=== PATIENT | female | born 1985 | race Caucasian/White ===

== ENCOUNTER 2024-07-10 07:55 | Inpatient (IN) ==
--- OUTSIDE RECORDS SUMMARY | 2024-07-10 08:02 | External Medical Summary | Summary of Care ---
Author Name Unknown Organization [facility] Address [address] [facility] [place] [address] Phone [phone] Care Team Providers Care Delivery Sales Worker Name Role Phone Bhavin Garcia MD Primary Care Provider Reason for Visit * Reason Comments Cough Encounter Details Date Type Department Care Team (Late st Contact Info) Description 03/17/2024 10:40 AM EST Telemedicine General Internal Medicine [facility] [address] [place] [address] [place] Arzola MD [address] [place] [address] Bronchitis, complicated*; Low grade fever; Exposure to potential infection Allergies Active Allergy Reactions Criticality Noted Date Comments Cefaclor Other (Please comment) 11/20/2023 Takes skin off of tongue Cephalosporins Other (Please comment) Medium 06/28/1999 Takes skin off tongue Dextromethorphan-Guaifene sin 07/25/2020 Palpitations Naproxen 09/13/2010 Nauseas,vomiting Prednisone Other (Please comment) 09/12/2015 vomiting Shellfish Nausea/vomiting Low 09/06/2009 Sulfa Antibiotics Edema face/lips/tongue High 05/24/2012 documented as of this encounter (statuses as of 03/17/2024) Medications TRIAMCINOLONE ACETONIDE 0.1 % EX OINTIndications :Dermatitis Apply to affected area twice a day 30 g 1 3 Active Tums E-X 750 750 MG Oral Tablet Chewable (calcium CARBonate) Take 2 Tabs by mouth 2 times a day. 28 Tab 1 Active Loratadine 10 MG Oral Tablet (Claritin) Take 1 Tablet by mouth every afternoon. Active Ventolin HFA 108 (90 Base) MCG/ACT Inhalation Aerosol SolutionIndicat ions:Cough, unspecified type Inhale 2 Puffs by mouth every 4 hours as needed for Wheezing. 8 g 2 4 Active Additional Information Patient not taking.Reported on 03/17/2024 Azithromycin 250 MG Oral Tablet (Zithromax Z-Joe)Indicatio ns:Bronchitis, complicated,Low grade fever,Exposure to potential infection Take two tablets by mouth on first day, then 1 tablet daily until gone 6 Tablet 4 Active Fluticasone Propionate 50 MCG/ACT Nasal SuspensionIndic ations:as needed Administer 1 [place] into nostril daily at noon. Discontin ued(End of Procedure ) Polyethylene Glycol 3350 17 GM/SCOOP Oral PowderIndicatio ns:as needed Take 17 g by mouth in the morning. Discontin ued(End of Procedure ) Spacer/Aero-Hol ding Chambers Device Use with inhaler. 1 Each 2 Discontin ued(End of Procedure ) Lansoprazole 30 MG Oral Capsule Delayed Release (Prevacid) Take 1 Capsule by mouth in the morning. 30 minutes before the first meal of the day.. 30 Capsule 1 4 024 Discontin ued(End of Procedure ) Fluticasone-Segundo meterol 250-50 MCG/ACT Inhalation Aerosol Powder Breath Activated (Advair Diskus)Indicati ons:Cough, unspecified type Inhale 1 Puff by mouth in the morning and 1 Puff before bedtime. 60 Each 1 4 024 Discontin ued(End of Procedure ) Doxycycline Hyclate 100 MG Oral Capsule Take 1 Capsule by mouth in the morning and 1 Capsule before bedtime. 4 024 Discontin ued(End of Procedure ) Apixaban Starter Pack 5 MG Oral Tablet Therapy Pack (Eliquis DVT/PE Starter Pack)Indication s:Superficial thrombosis of left lower extremity Take 10 mg by mouth 2 times a day for 7 days, THEN 5 mg 2 times a day for 21 days. 74 Tablet 12/01/2023 10:59 AM EDT 4 024 Discontin ued(End of Procedure ) documented as of this encounter (statuses as of 03/17/2024) Active Problems Problem Noted Date Diagnosed Date Chronic gastritis without bleeding 12/03/2022 Gastroesophageal reflux disease without esophagi tis 03/28/2019 Multinodular goiter 06/05/2016 GERA (generalized anxiety disorder) 05/06/2013 Allergic rhinitis 08/18/2000 documented as of this encounter (statuses as of 03/17/2024) Resolved Problems Problem Noted Date Diagnosed Date Resolved Date Persistent cough for 3 weeks or longer 06/19/2022 09/30/2022 Acute non-recurrent frontal sinusitis 06/19/2022 09/30/2022 Costochondritis 09/13/2010 05/06/2013 Threatened premature labor, antepartum 09/13/2009 10/29/2009 Overview (08/28/2020): Admitted at 27+ wks to [facility] [place] and sent to [place] - d/c'd Cx length 1.5 cm, Cx dilated 1 cm FFN + Rec'd BMZ Off work ICD-10 update of inactive term ADVANCE DIRECTIVE INFORMATION 08/21/2009 12/13/2021 Overview (09/02/2005): Information offered-patient declined Twin , antepartum 06/05/2009 0 10/29/2009 Overview (10/08/2009): U/s 09/25 - vtx/vtx, concordant growth per Dr Childress Needs weekly kimi, twice weekly nsts at 32 wks. Rh negative, antepartum 04/25/2009 07/0 08/2009 Overview (08/28/2015): Rhogam candidate with spotting and 28w- 09/14/2009 given Itzel VICK ICD-10 update of inactive term OB [place] 04/24/2009 0 JOINT PAIN-ANKLE 08/29/2000 05/06/2013 DYSFUNCT EUSTACHIAN TUBE 08/18/200001/2014 documented as of this encounter (statuses as of 03/17/2024) Immunizations Name Administration Dates Next Due HEP A - Hepatitis A (Adult > 18 yrs) 08/29/2021, 03/01/2021 Hepatitis B, 20+ yrs 08/29/2021,06/25/2021,03/01 PPD 06/06/2015 TDAP (age 10 and older)(Boostrix) 02/06/2020 TDAP, Age 7 and older, IM (Adacel) 10/29/2009 documented as of this encounter Social History Tobacco Use Types Packs/Day Years Used Date Smoking Tobacco: Never Smokeless Tobacco: Never Alcohol Use Standard Drinks/Week Comments No 0 (1 standard drink = 0.6 oz pur e alcohol) PHQ-2 Answer Date Recorded PHQ Adult Total Score 0 08/24/2023 Hunger Vital Sign Answer Date Recorded Within the past 12 months, y ou worried that your food would run out before you got the money to buy more. Never true 11/30/19 24 Within the past 12 months, t he food you bought just didn't last and you didn't have money to get more. Never true 11/30/2023 Childcare Answer Date Recorded Do you feel overwhelmed with taking care of a child, family member or friend? No 11/30/2023 Does your family need help f inding childcare? (Household - for ages 0-17 years) Not on file 11/30/2023 Clothing Answer Date Recorded Have you been unable to get clothing when it was really needed? No 11/30/2023 Is your family able to get c lothes or diapers when needed? (Household - for ages 0-17 years) Not on file 11/30/2023 Personal Safety Answer Date Recorded Do you feel unsafe or have concerns for your saf ety? No 11/30/2023 Do you have concerns for you r family's safety? (Household - for ages 0-17 years) Not on file 11/30/2023 Utilities Answer Date Recorded Do you have trouble paying y our heating, water, or electric bill? No 11/30/2023 Is your family able to pay t he heat, water, or electric bill? (Household - for ages 0-17 years) Not on file 11/30/2023 Does your family have access to good internet? (Household - for ages 0-17 years) Not on file 11/30/2023 Employment Status Answer Date Recorded Are you unemployed or without regular income? No 11/30/2023 Does the household have a re gular source of income? (Household - for ages 0-17 years) Not on file 11/30/2023 Social Connections Answer Date Recorded How often do you feel lonely or isolated from th ose around you? Never 11/30/2023 Financial Resource Strain Answer Date R ecorded Do you have any trouble payi ng for your medications, or do you think you might in the future? No 11/30/2023 Does your family have troubl e paying for medicine? (Household - for ages 0-17 years) Not on file 11/30/2023 Transportation Needs Answer Date Record ed Do you have trouble getting a ride to medical visits or work? (Adult - for ages 18 years and over) Not on file 11/30/2023 Does your family have a hard time getting a ride to doctors visits? (Household - for ages 0-17 years) Not on file 11/30/2023 Has lack of transportation k ept you from medical appointments, meetings, work, or from getting things needed for daily living? Check all that apply. No 11/30/2023 Do you (or your family) have trouble finding or paying for a ride (transportation)? (Household - for ages 0-17 years) Not on file 11/30/2023 Housing Stability Answer Date Recorded Do you currently live in a s helter or have no steady place to sleep at night? No 11/30/2023 Do you think you are at risk of becoming homeless? (Adult - for ages 18 years and over) Not on file 11/30/2023 Does your family worry about paying for your home or becoming homeless? (Household - for ages 0-17 years) Not on file 0 11/30/2023 Are you homeless or worried that you might be in the future? No 11/30/2023 Are you (or your family) joe eless or worried that you might be in the future? (Household - for ages 0-17 years) Not on file Food Insecurity Answer Date Recorded Do you need food for this week? No 11/30/2023 Are you able to get enough f ood for your family? (Household - for ages 0-17 years) Not on file 11/30/2023 Does your family need food t his week? (Household - for ages 0-17 years) Not on file 11/30/2023 Do you always have enough fo od for your family? (Household - for ages 0-17 years) Not on file 11/30/2023 Comments No Sex and Gender Information Value Date Recorded Sex Assigned at Female 11/20/2022 9:18 AM EDT Legal Sex Female 7:11 AM EST Gender Identity Female 11/20/2022 9:18 AM EDT Sexual Orientation Straight 11/20/2022 9: 18 AM EDT documented as of this encounter Progress Notes * [place] Arzola MD - 03/17/2024 10:49 AM EST SUBJECTIVE: Queta Pagan is a 38 year old female. Chief Complaint Patient presents with Cough Nursing Notes: Claudia Amador, Student 03/17/24 1038 Signed Pt presents with a dry hacking cough and a fever that started in the last week. No other cold symptoms present. Pt was exposed to walking pneumonia and has taken numerous OTC medications w/o desired effects I was in a hospital or clinic location. After connecting through televideo, patient was verified with two unique identifiers. 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 Methods to assure confidentiality were taken. Patient acknowledged consent and understanding of privacy and security of the Telemedicine visit. The patient agreed to participate. HPI: This clinic encounter was completed utilizing remote or virtual means secondary to the COVID-19 outbreak. Patient presents today for acute appointment with symptoms of cough for the last 6 days feels she has chest congestion but unable to expectorate. No wheezing chest pain or shortness of breath. Has mild pressure across her forehead. Denies runny nose or sore throat Fever low-grade for the last 2 days 100.4 F. her 2 kids age 14 had walking pneumonia 1 of them had an x-ray which confirmed it the other had just a clinical exam. Has not done home COVID test. Had recurrent sinus infection in June and was treated with antibiotics, also was given prednisone,steroid inhaler and albuterol inhaler. 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 Immunization History Administered Date(s) Administered DT - Diptheria/Tetanus (PEDS) 06/28/1999 DTP Vaccine 1983, 1983, 01/07/1984, 03/10/1985, 03/21/1988 HEP A - Hepatitis A (Adult > 18 yrs) 03/01/2021, 08/29/2021 HEP B - Hepatitis B (Adole/High Risk Ped, 11-15 yrs 06/28/1999 Hepatitis B, 20+ yrs 03/01/2021, 06/25/2021, 08/29/2021 MMR - Measles/Mumps/Rubella Vaccine 10/18/1984, 06/28/1999 OPV - Polio Virus Vaccine (Oral) 1983, 1983, 03/10/1985, 03/21/1988 PPD 06/06/2015 Rho Immune Globulin 09/14/2009, 10/27/2009 TDAP (age 10 and older)(Boostrix) 02/06/2020 TDAP, Age 7 and older, IM (Adacel) 10/29/2009 Terbutaline Sulfate 09/12/2009, 09/13/2009, 09/14/2009, 09/26/2009, 10/03/2009, 10/22/2009, 10/26/2009 Patient Active Problem List Diagnosis Allergic rhinitis GERA (generalized anxiety disorder) Multinodular goiter Gastroesophageal reflux disease without esophagitis Chronic gastritis without bleeding Current Outpatient Medications Medication Sig Dispense Refill TRIAMCINOLONE ACETONIDE 0.1 % EX OINT Apply to affected area twice a day 30 g 1 Polyethylene Glycol 3350 17 GM/SCOOP Oral Powder Take 17 g by mouth in the morning. Tums E-X 750 750 MG Oral Tablet Chewable (calcium CARBonate) Take 2 Tabs by mouth 2 times a day. 28Tab 0 Loratadine 10 MG Oral Tablet (Claritin) Take 1 Tablet by mouth every afternoon. Ventolin HFA 108 (90 Base) MCG/ACT Inhalation Aerosol Solution Inhale 2 Puffs by mouth every 4 hours as needed for Wheezing. (Patient not taking: Reported on 03/17/2024) 8 g 2 No current facility-administered medications for this visit. Review of patient's allergies indicates: Allergen Reactions Sulfa Antibiotics Edema face/lips/tongue Cephalosporins Other (Please comment) Takes skin off tongue Cefaclor Other (Please comment) Takes skin off of tongue Mucinex Cough For Kids [Dextromethorphan-Guaifenesin] Palpitations Naprosyn [Naproxen] Nauseas,vomiting Prednisone Other (Please comment) vomiting Shellfish Nausea/vomiting OBJECTIVE: No vitals were obtained for this appointment PHYSICAL EXAM: General: alert, healthy, no distress Head-normocephalic, no erythema or tenderness on patient exam Eyes-sclera clear. OP- Mm Moist Neck-supple Lungs: able to take deep breaths,no rhonchi with forced expiration but has audible congestion Neuro-alert with fluent speech Face flushed ASSESSMENT/PLAN: Bronchitis, complicated (Primary) - Azithromycin 250 MG Oral Tablet (Zithromax Z-Joe); Take two tablets by mouth on first day, then 1tablet daily until gone - XR CHEST 2 VIEWS; Future; Expected date: 03/19/2024 Low grade fever - Azithromycin 250 MG Oral Tablet (Zithromax Z-Joe); Take two tablets by mouth on first day, then 1tablet daily until gone - XR CHEST 2 VIEWS; Future; Expected date: 03/19/2024 Exposure to potential infection - Azithromycin 250 MG Oral Tablet (Zithromax Z-Joe); Take two tablets by mouth on first day, then 1tablet daily until gone - XR CHEST 2 VIEWS; Future; Expected date: 03/19/2024 Inc intake fluids. Advised to use otc nasal saline spray/drops q1-2 hrs while awake as needed. Advised warm saline gargles qid prn for relief. Mucinex 1 or 2 pills by mouth twice a day for cough with plenty of water as needed Tylenol 500 mg 1-2 tabs Alternate with Motrin 200 mg 2 tab every 8 hrs as needed for pain/fever. Advised to use albuterol that she has 2 to 3 times a day till better. Z-Joe as above. If fever persists or if cough not better to have chest x-ray done in the next 2- 3 days Follow Up: Return if symptoms worsen or fail to improve. (This note was completed using the dictation program Fluency Direct. As such, there may be misspellings, word substitutions, or other variations that should not change the essence of the clinical content of this encounter note. If there is need for further clarification, please direct questions to the provider listed above.) Patient and / caregiver verbalizes understanding of above instructions and agrees with plan of care. [place] Arzola MD 03/17/2024 documented in this encounter Nursing Notes * Claudia Amador, Student - 03/17/2024 10:34 AM EST Pt presents with a dry hacking cough and a fever that started in the last week. No other cold symptoms present. Pt was exposed to walking pneumonia and has taken numerous OTC medications w/o desired effects documented in this encounter Plan of Treatment Scheduled Orders Name Type Priority Associated Diagnoses Orde r Schedule XR CHEST 2 VIEWS Medical Imaging Routine Bronchitis, complicated Low grade fever Exposure to potential infection Expected: 03/19/2024, Expires: 04/16/2025 Health Maintenance Due Date Last Done Comments Lipid Panel 1983 HPV/Co-Test 07/02/2013 COVID-19 Vaccine ( season) 2023 Influenza Vaccine (FLU shot) (#1) 2023 Cervical Cancer Screening 05/28/2024 Pap Smear 05/28/2024 05/28/2021, 06/09/2019, 03/09/2019, Additional history exists Depression Screening 08/23/2024 08/24/2023 Mammogram 09/13/2024 09/14/2023, 09/10/2005 DTap/Tdap Vaccines (9 - Td or Tdap) 02/05/2030 02/06/2020, 10/29/2009, 06/28/1999, Additional history exists Hepatitis C Screening Completed 02/07/2014 Hepatitis B Vaccine Completed 08/29/2021, 06/25/2021, 03/01/2021, Additional history exists HPV (Gardasil) Vaccine Aged Out No lo nger eligible based on patient's age to complete this topic MENINGOCOCCAL (MENACTRA/MENVEO) Aged Out No longer eligible based on patient's age to complete this topic Pneumococcal Vaccine: Pediatrics (0 to 5 Years) and At-Risk Patients (6 to 64 Years) Aged Out No longer eligible based on patient's age to complete this topic documented as of this encounter Medical Devices Implanted Type Area Hydrochloric Manufacturing Supervisor Device Identifier Shelf Expiration Date Model / Serial / Lot Patch Hernia Ventralex l - [id number] Implanted:Qty: 1 on 09/06/2019 by Jelani Rey MD at [facility] N/A: Abdomen CR BARD : DAVOL 02/21/2021 [id number] / / [id number] documented as of this encounter Visit Diagnoses Diagnosis Bronchitis, complicated- Primary Bronchitis, not specified as acute or chronic Low grade fever Fever, unspecified Exposure to potential infection Contact with or exposure to unspecified communicable disease documented in this encounter Advance Directives * Full Code (Latest Code Status on File) Date Activated Date Inactivated Comments 09/06/2019 11:39 AM 09/06/2019 5:40 PM This order reflects the patients wishes and were consensually agreed upon. * Full Code Date Activated Date Inactivated Comments 10/26/2009 4:05 PM 10/30/2009 2:56 AM This order ref lects the patients wishes and were consensually agreed upon. * Full Code Date Activated Date Inactivated Comments 10/15/2009 9:15 PM 10/19/2009 3:02 PM This order r eflects the patients wishes and were consensually agreed upon. * Full Code Date Activated Date Inactivated Comments 09/06/2009 10:09 PM 09/10/2009 2:14 PM This order reflects the patients wishes and were consensually agreed upon. Care Teams Delivery Sales Worker Relationship Specialty Start Date End Date Bhavin Garcia MD [address] [facility] [place] [id number] PCP - General Family Medicine 08/13/23 documented as of this encounter
--- OUTSIDE RECORDS SUMMARY | 2024-07-10 08:02 | External Medical Summary | Summary of Care ---
Author Name Unknown Organization [facility] Address [address] [place] [address] Phone [phone] Care Team Providers Care Roller Engraver Name Role Phone Bhavin Garcia MD Primary Care Provider Reason for Visit * Reason Comments Follow Up 3 months. Occasional discomfort in area where blood clot was. Has not taken medication for the past month as it was only written for 2 months. Encounter Details Date Type Department Care Team (Late st Contact Info) Description 03/01/2024 4:40 PM EST Office Visit Family [facility] [address] [place] [address] Mone Lora CRNP [address] [facility] [place] [address] History of blood clots* Allergies Active Allergy Reactions Criticality Noted Date Comments Cefaclor Other (Please comment) 11/20/2023 Takes skin off of tongue Cephalosporins Other (Please comment) Medium 06/28/1999 Takes skin off tongue Dextromethorphan-Guaifene sin 07/25/2020 Palpitations Naproxen 09/13/2010 Nauseas,vomiting Prednisone Other (Please comment) 09/12/2015 vomiting Shellfish Nausea/vomiting Low 09/06/2009 Sulfa Antibiotics Edema face/lips/tongue High 05/24/2012 documented as of this encounter (statuses as of 03/01/2024) Medications Medication Sig Dispensed Refills Start Date End Date Status TRIAMCINOLONE ACETONIDE 0.1 % EX OINTIndications: Dermatitis Apply to affected area twice a day 30 g 1 02/15/2013 Active Fluticasone Propionate 50 MCG/ACT Nasal SuspensionIndica tions:as needed Administer 1 [place] into nostril daily at noon. Active Polyethylene Glycol 3350 17 GM/SCOOP Oral PowderIndication s:as needed Take 17 g by mouth in the morning. Active Tums E-X 750 750 MG Oral Tablet Chewable (calcium CARBonate) Take 2 Tabs by mouth 2 times a day. 28 Tab 09/20/2020 Active Spacer/Aero-Hold ing Chambers Device Use with inhaler. 1 Each 12/24/2021 Active Additional Information Patient not taking.Reported on 12/03/2022 Loratadine 10 MG Oral Tablet (Claritin) Take 1 Tablet by mouth every afternoon. Active Lansoprazole 30 MG Oral Capsule Delayed Release (Prevacid) Take 1 Capsule by mouth in the morning. 30 minutes before the first meal of the day.. 30 Capsule 1 08/13/2023 Active Additional Information Patient not taking.Reported on 11/30/2023 Fluticasone-Salm eterol 250-50 MCG/ACT Inhalation Aerosol Powder Breath Activated (Advair Diskus)Indicatio ns:Cough, unspecified type Inhale 1 Puff by mouth in the morning and 1 Puff before bedtime. 60 Each 1 08/24/2023 Active Additional Information Patient not taking.Reported on 11/30/2023 Ventolin HFA 108 (90 Base) MCG/ACT Inhalation Aerosol SolutionIndicati ons:Cough, unspecified type Inhale 2 Puffs by mouth every 4 hours as needed for Wheezing. 8 g 2 08/24/2023 Active Additional Information Patient not taking.Reported on 03/01/2024 Apixaban 5 MG Oral Tablet (Eliquis)Indicat ions:Superficial thrombosis of left lower extremity Take 1 Tablet by mouth in the morning and 1 Tablet before bedtime. Do not start before December 31, 2023. 60 Tablet 12/31/2023 4 Discontinued documented as of this encounter (statuses as of 03/01/2024) Active Problems Problem Noted Date Diagnosed Date Chronic gastritis without bleeding 12/03/2022 Gastroesophageal reflux disease without esophagi tis 03/28/2019 Multinodular goiter 06/05/2016 GERA (generalized anxiety disorder) 05/06/2013 Allergic rhinitis 08/18/2000 documented as of this encounter (statuses as of 03/01/2024) Resolved Problems Problem Noted Date Diagnosed Date Resolved Date Persistent cough for 3 weeks or longer 06/19/2022 09/30/2022 Acute non-recurrent frontal sinusitis 06/19/2022 09/30/2022 Costochondritis 09/13/2010 05/06/2013 Threatened premature labor, antepartum 09/13/2009 10/29/2009 Overview: Admitted at 27+ wks to [facility] and sent to [place] - d/c'd Cx length 1.5 cm, Cx dilated 1 cm FFN + Rec'd BMZ Off work ICD-10 update of inactive term ADVANCE DIRECTIVE INFORMATION 08/21/2009 12/13/2021 Overview: Information offered-patient declined Twin , antepartum 06/05/2009 0 10/29/2009 Overview: U/s 09/25 - vtx/vtx, concordant growth per Dr Childress Needs weekly kimi, twice weekly nsts at 32 wks. Rh negative, antepartum 04/25/200908/2009 Overview: Rhogam candidate with spotting and 28w- 09/14/2009 given Itzel VICK ICD-10 update of inactive term OB [place] 04/24/2009 0 JOINT PAIN-ANKLE 08/29/2000 05/06/2013 DYSFUNCT EUSTACHIAN TUBE 08/18/200001/2014 documented as of this encounter (statuses as of 03/01/2024) Immunizations Name Administration Dates Next Due HEP [...] ages 0-17 years) Not on file 11/30/2023 Sex and Gender Information Value Date Recorded Sex Assigned at Female 11/20/2022 9:18 AM EDT Gender Identity Female 11/20/2022 9:18 AM EDT Sexual Orientation Straight 11/20/2022 9: 18 AM EDT Job Start Date Occupation Industry Not on file Not on file Not on file documented as of this encounter Last Filed Vital Signs Vital Sign Reading Time Taken Comments Blood Pressure 102/68 03/01/2024 4:27 PM EST Pulse 65 03/01/2024 4:27 PM EST Temperature 37.3 C (99.1 F) 03/01/2024 4:27 PM ES T Respiratory Rate - - Oxygen Saturation 95% 03/01/2024 4:27 PM EST Inhaled Oxygen Concentration - - Weight 67.9 kg (149 lb 12.8 oz) 03/01/2024 4:27 PM EST Height - - Body Mass Index 23.46 08/17/2023 2:50 PM EDT documented in this encounter Progress Notes * Mone Lora CRNP - 03/01/2024 4:28 PM EST Images from the original note were not included. Follow up Family Medicine Visit History of Present Illness Queta Pagan is a very pleasant 38 year old female with PMH listed below presenting with 3 month f/u. Had a superficial blood clot in perineal and post tibial, no DVT. Provoked by severe trauma. Monitoring vs treating with anticoagulation, treat with Eliquis 2 months, symptoms improved. Social History Socioeconomic History Marital status: Spouse name: Not on file Number of children: 2 Years of education: Not on file Highest education level: Not on file Occupational History Not on file Tobacco Use Smoking status: Never Smokeless tobacco: Never Vaping Use Vaping status: Never Used Substance and Sexual Activity Alcohol use: No Drug use: No Sexual activity: Yes Partners: Male control/protection: Surgical Comment: BTL Other Topics Concern Not on file Social History Narrative Not on file Social Determinants of Health Financial Resource Strain: Low Risk (11/30/2023) Financial Resource Strain Do you have any trouble paying for your medications, or do you think you might in the future? (Adult - for ages 18 years and over): No Does your family have trouble paying for medicine? (Household - for ages 0-17 years): Not on file Food Insecurity: No Food Insecurity (11/30/2023) Food Insecurity Do you need food for this week? (Adult - for ages 18 years and over): No Are you able to get enough food for your family? (Household - for ages 0-17 years): Not on file Does your family need food this week? (Household - for ages 0-17 years): Not on file Do you always have enough food for your family? (Household - for ages 0-17 years): Not on file Transportation Needs: No Transportation Needs (11/30/2023) Transportation Needs Do you have trouble getting a ride to medical visits or work? (Adult - for ages 18 years and over):Not on file Does your family have a hard time getting a ride to doctors visits? (Household - for ages 0-17 years): Not on file Has lack of transportation kept you from medical appointments, meetings, work, or from getting things needed for daily living? Check all that apply. (Adult - for ages 18 years and over): No Do you (or your family) have trouble finding or paying for a ride (transportation)? (Household - for ages 0-17 years): Not on file Social Connections: Socially Integrated (11/30/2023) Social Connections How often do you feel lonely or isolated from those around you? (Adult - for ages 18 years and over): Never Housing Stability: Low Risk (11/30/2023) Housing Stability Do you currently live in a jail or have no steady place to sleep at night? (Adult - for ages 18 years and over): No Do you think you are at risk of becoming homeless? (Adult - for ages 18 years and over): Not on file Does your family worry about paying for your home or becoming homeless? (Household - for ages 0-17 years): Not on file Are you homeless or worried that you might be in the future? (Adult - for ages 18 years and over): No Are you (or your family) homeless or worried that you might be in the future? (Household - for ages0-17 years): Not on file PMH: Past Medical History: Diagnosis Date ALLERGIC RHINITIS NOS 08/18/2000 Dysplasia of cervix, low grade (KIM 1) 08/2018 again 11/2020 GERA (generalized anxiety disorder) 05/06/2013 Multinodular goiter 06/05/2016 Past Surgical History: Procedure Laterality Date , INDUCED BY D&E 2012 ANESTH, CS DELIVERY 10/26/2009 ANESTHESIA FOR DELIVERY ONLY performed by MAYA FRANCO at [facility] BREAST LESION,OTHER,EXCISION Right 2008 benign @ [facility], [facility] DELIVERY 10/26/2009 twins COLONOSCOPY, DIAGNOSTIC (RECTUM) 08/03/2020 normal bx / COLONOSCOPY FLEXIBLE PROXIMAL DIAGNOSTIC performed by Mason Ramirez MD at ENDOSCOPY [facility] COLPOSCOPY OF CERVIX W/BIOPSY 08/2018 EGD, FLEXIBLE, DIAGNOSTIC 05/31/2013 ESOPHAGOGASTRODUODENOSCOPY (EGD), FLEXIBLE, TRANSORAL, DIAGNOSTIC performed by Mason Ramirez MD at END[facility]COPY [facility] EGD, FLEXIBLE, DIAGNOSTIC 08/09/2018 normal biopsies/ESOPHAGOGASTRODUODENOSCOPY (EGD), FLEXIBLE, TRANSORAL, DIAGNOSTIC performed by Mason Ramirez MD at ENDOSCOPY [facility] EGD, FLEXIBLE, DIAGNOSTIC 08/03/2020 mild - mod inflammation / ESOPHAGOGASTRODUODENOSCOPY (EGD), FLEXIBLE, TRANSORAL, DIAGNOSTIC performed by Mason Ramirez MD at ENDOSCOPY [facility] LIGATE/CUT OVIDUCT(S) OTHER 1999 x4 wisdom teeth removed OTHER 09/2005 excision right breast mass- fibroadenoma Dr. Kelly REMOVAL OF THYROID LOBE, TOTAL Left 09/20/2020 TOTAL THYROID LOBECTOMY UNILATERAL performed by Goyo Bhardwaj DO at [facility] REPAIR INITIAL INGUINAL HERNIA REDUCIBLE AGE 5 OR MORE 06/08/2006 LIH repair - [facility] [place] Dr. Kelly UMBIL HERNIA REPAIR (REDUCIBLE) AGE 5+YR N/A 09/06/2019 REPAIR UMBILICAL HERNIA AGE 5 AND OVER performed by Jelani Rey MD at OR [facility] Current Outpatient Medications Medication Sig Dispense Refill Apixaban 5 MG Oral Tablet (Eliquis) Take 1 Tablet by mouth in the morning and 1 Tablet before bedtime. Do not start before December 31, 2023. 60 Tablet 0 Loratadine 10 MG Oral Tablet (Claritin) Take 1 Tablet by mouth every afternoon. Tums E-X 750 750 MG Oral Tablet Chewable (calcium CARBonate) Take 2 Tabs by mouth 2 times a day. 28Tab 0 Polyethylene Glycol 3350 17 GM/SCOOP Oral Powder Take 17 g by mouth in the morning. TRIAMCINOLONE ACETONIDE 0.1 % EX OINT Apply to affected area twice a day 30 g 1 Fluticasone-Salmeterol 250-50 MCG/ACT Inhalation Aerosol Powder Breath Activated (Advair Diskus) Inhale 1 Puff by mouth in the morning and 1 Puff before bedtime. (Patient not taking: Reported on 11/30/2023) 60 Each 1 Ventolin HFA 108 (90 Base) MCG/ACT Inhalation Aerosol Solution Inhale 2 Puffs by mouth every 4 hours as needed for Wheezing. (Patient not taking: Reported on 03/01/2024) 8 g 2 Lansoprazole 30 MG Oral Capsule Delayed Release (Prevacid) Take 1 Capsule by mouth in the morning. 30 minutes before the first meal of the day.. (Patient not taking: Reported on 11/30/2023) 30 Capsule 1 Spacer/Aero-Holding Chambers Device Use with inhaler. (Patient not taking: Reported on 12/03/2022) 1 Each 0 Fluticasone Propionate 50 MCG/ACT Nasal Suspension Administer 1 [place] into nostril daily at noon. (Patient not taking: Reported on 11/23/2023) No current facility-administered medications for this visit. Review of patient's allergies indicates: Allergen Reactions Sulfa Antibiotics Edema face/lips/tongue Cephalosporins Other (Please comment) Takes skin off tongue Cefaclor Other (Please comment) Takes skin off of tongue Mucinex Cough For Kids [Dextromethorphan-Guaifenesin] Palpitations Naprosyn [Naproxen] Nauseas,vomiting Prednisone Other (Please comment) vomiting Shellfish Nausea/vomiting Most Recent Immunizations Administered Date(s) Administered DT - Diptheria/Tetanus (PEDS) 06/28/1999 DTP Vaccine 03/21/1988 HEP A - Hepatitis A (Adult > 18 yrs) 08/29/2021 HEP B - Hepatitis B (Adole/High Risk Ped, 11-15 yrs 06/28/1999 Hepatitis B, 20+ yrs 08/29/2021 MMR - Measles/Mumps/Rubella Vaccine 06/28/1999 OPV - Polio Virus Vaccine (Oral) 03/21/1988 PPD 06/06/2015 Rho Immune Globulin 10/27/2009 TDAP (age 10 and older)(Boostrix) 02/06/2020 TDAP, Age 7 and older, IM (Adacel) 10/29/2009 Terbutaline Sulfate 10/26/2009 Review of Systems: Physical Exam There were no vitals taken for this visit. Physical Exam Constitutional: Appearance: Normal appearance. Musculoskeletal: Left upper leg: No swelling or edema. Neurological: General: No focal deficit present. Mental Status: She is oriented to person, place, and time. Assessment and Plan 1. History of blood clots Provoked by trauma Resolved Wrap-Up I have advised the patient to call our office with any worsening or new symptoms. I spent a total of 10-19 minutes (exact time 15 mins) on the date of service in preparation, delivery, and documentation of the care provided to Queta Pagan excluding any time spent in the performance of separately billed services. Mone Lora, DAVONTE, MINOO [facility] documented in this encounter Nursing Notes * Tanya Adams, Rachel - 03/01/2024 4:24 PM EST The patient has been properly identified by confirmation of name and date of . Chief Complaint Patient presents with Follow Up 3 months. Occasional discomfort in area where blood clot was. Has not taken medication for the pastmonth as it was only written for 2 months. documented in this encounter Plan of Treatment Upcoming Encounters Date Type Department Care Team (Late st Contact Info) Description 03/17/2024 10:00 AM EST Office Visit Family [facility] [address] [place] [address] Diane Mi CRNP [address] [place] [address] Health Maintenance Due Date Last Done Comments Lipid Panel 1983 HPV/Co-Test 07/02/2013 COVID-19 Vaccine ( season) 2023 Influenza Vaccine (FLU shot) (#1) 2023 Cervical Cancer Screening 05/28/2024 Pap Smear 05/28/2024 05/28/2021, 09/26, 03/09/2019, Additional history exists Depression Screening 08/23/2024 [...] this encounter Medical Devices Implanted Type Area Mobile Heavy Equipment Operator Device Identifier Shelf Expiration Date Model / Serial / Lot Patch Hernia Ventralex l - [id number] Implanted:Qty: 1 on 09/06/2019 by Jelani Rey MD at [facility] N/A: Abdomen CR BARD : DAVOL 02/21/2021 [id number] / / [id number] documented as of this encounter Visit Diagnoses Diagnosis History of blood clots- Primary Personal history of venous thrombosis and embolism documented in this encounter Advance Directives * [...] and were consensually agreed upon. Care Teams Roller Engraver Relationship Specialty Start Date End Date Bhavin Garcia MD [address] [place] [address] PCP - General Family Medicine 08/13/23 documented as of this encounter
--- OUTSIDE RECORDS SUMMARY | 2024-07-10 08:02 | External Medical Summary | Summary of Care ---
Author Name Unknown Organization [facility] Address [address] [facility] [place] [address] Phone [phone] Care Team Providers Care Member Certification Manager Name Role Phone Bhavin Garcia MD Primary Care Provider Reason for Referral * Evaluate & Treat - Unlimited Visits (Within 10 days (routine)) - Authorized Specialty Diagnoses / Procedures Referred By Iglesia butt Referred To Contact Physical Therapy / Physical Medicine And Rehab Diagnoses Laceration of left lower leg, initial encounter [employer] PA-C [address] [place] [id number] Referral ID Status Reason Start Date Expiration Date Visits Requested Visits Authorized [id number] Authorized Specialty Services Required 12/01/[phone] Question Answer Referral Priority Within 10 days (routine) Where should this appointment be scheduled? [facility] Comments PT 2 to 3 times a week for 4-6 weeks Wean crutches Increase range of motion Modalities and is as needed Reason for Visit * Reason Onset Date Comments Physical Therapy 11/30/2023 Encounter Details Date Type Department Care Team (Late st Contact Info) Description 11/30/2023 Telephone Orthopaedics [facility] [address] [place] [address] [employer] PA-C [address] [place] [address] Physical Therapy Allergies Active Allergy Reactions Criticality Noted Date Comments Cephalosporins Other (Please comment) Medium 06/28/1999 Takes skin off tongue Dextromethorphan-Guaifene sin 07/25/2020 Palpitations Naproxen 09/13/2010 Nauseas,vomiting Prednisone Other (Please comment) 09/12/2015 vomiting Shellfish Nausea/vomiting Low 09/06/2009 Sulfa Antibiotics Edema face/lips/tongue High 05/24/2012 documented as of this encounter (statuses as of 02/29/2024) Medications Medication Sig Dispensed Refills Start Date End Date Status TRIAMCINOLONE ACETONIDE 0.1 % EX OINTIndications:Rafiq matitis Apply to affected area twice a day 30 g 1 02/15/2013 Active Fluticasone Propionate 50 MCG/ACT Nasal SuspensionIndicatio ns:as needed Administer 1 [place] into nostril daily at noon. Active Polyethylene Glycol 3350 17 GM/SCOOP Oral PowderIndications:a s needed Take 17 g by mouth in the morning. Active Tums E-X 750 750 MG Oral Tablet Chewable (calcium CARBonate) Take 2 Tabs by mouth 2 times a day. 28 Tab 09/20/2020 Active Spacer/Aero-Holding Chambers Device Use with inhaler. 1 Each [...] Additional Information Patient not taking.Reported on 11/30/2023 Fluticasone-Salmete rol 250-50 MCG/ACT Inhalation Aerosol Powder Breath Activated (Advair Diskus)Indications: Cough, unspecified type Inhale 1 Puff by mouth in the morning and 1 Puff before bedtime. 60 Each 1 08/24/2023 Active Additional Information Patient not taking.Reported on 11/30/2023 Ventolin HFA 108 (90 Base) MCG/ACT Inhalation Aerosol SolutionIndications :Cough, unspecified type Inhale 2 Puffs by mouth every 4 hours as needed for Wheezing. 8 g 2 08/24/2023 Active documented as of this encounter (statuses as of 02/29/2024) Active Problems Problem Noted Date Diagnosed Date Chronic gastritis without bleeding 12/03/2022 Gastroesophageal reflux disease without esophagi tis 03/28/2019 Multinodular goiter 06/05/2016 GERA (generalized anxiety disorder) 05/06/2013 Allergic rhinitis 08/18/2000 documented as of this encounter (statuses as of 02/29/2024) Resolved Problems Problem Noted Date Diagnosed Date Resolved Date Persistent cough for 3 weeks or longer 06/19/2022 09/30/2022 Acute non-recurrent frontal sinusitis 06/19/2022 09/30/2022 Costochondritis 09/13/2010 05/06/2013 Threatened premature labor, antepartum 09/13/2009 10/29/2009 Overview: Admitted at 27+ wks to [facility] and sent to [place] - d/c'd Cx length 1.5 cm, Cx [...] as of this encounter (statuses as of 02/29/2024) Immunizations Name Administration Dates Next Due HEP [...] on file documented as of this encounter Miscellaneous Notes * Telephone Encounter - Mag Bright PA-C - 12/01/2023 1:53 PM EDT I placed a PT referral. I do not have any ED records yet. Please ask patient to request her records. Please schedule telephone visit with me in 4 weeks. * Telephone Encounter - Claudia Mcfarlane OSA - 11/30/2023 10:00 AM EDT Check-out notes on 11/22 state for pt to come back if symptoms worsen or fail to improve but nothingabout PT. She was inquiring about going to PT. documented in this encounter Plan of Treatment Upcoming Encounters Date Type Department Care Team (Late st Contact Info) Description 03/01/2024 4:40 PM EST Office Visit Family Practice [facility] [address] [place] [address] Mone Lora CRNP [address] [address] Scheduled Referrals Name Type Priority Associated Diagnoses Orde r Schedule PHYSICAL THERAPY REFERRAL OP Referral Within 10 days (routine) Laceration of left lower leg, initial encounter Ordered: 12/01/2023 Health Maintenance Due Date Last Done Comments [...] this encounter Medical Devices Implanted Type Area Rural Service Engineer Device Identifier Shelf Expiration Date Model / Serial / Lot Patch Hernia Ventralex l - [id number] Implanted:Qty: 1 on 09/06/2019 by Jelani Rey MD at [facility] N/A: Abdomen CR BARD : DAVOL 02/21/2021 [id number] / / [id number] documented as of this encounter Visit Diagnoses Diagnosis Laceration of left lower leg, initial encounter- Primary documented in this encounter Advance Directives * [...] and were consensually agreed upon. Care Teams Member Certification Manager Relationship Specialty Start Date End Date Bhavin Garcia MD [address] [place] [address] PCP - General Family Medicine 08/13/23 documented as of this encounter
--- OUTSIDE RECORDS SUMMARY | 2024-07-10 08:02 | External Medical Summary | Summary of Care ---
Author Name Unknown Organization [facility] Address [address] [place] [place] [address] Phone [phone] Care Team Providers Care Cashier Or Checker Stock Clerk Name Role Phone Bhavin Garcia MD Primary Care Provider Reason for Visit * Reason Comments Back Pain Upper back/left uppe r shoulder/scapula x 2 daysThinks slept on neck wrong. Pain radiates down arm. Feels like pinched nerve. Encounter Details Date Type Department Care Team (Late st Contact Info) Description 07/07/2024 10:40 AM EDT Office Visit Family Practice [facility] [address] [facility] [place] [id number] Stacy Burger MD [address] [facility] [place] [address] Neck pain* Allergies Active Allergy Reactions Criticality Noted Date Comments Cefaclor Other (Please comment) 11/20/2023 Takes skin off of tongue Cephalosporins Other (Please comment) Medium 06/28/1999 Takes skin off tongue Dextromethorphan-Guaifene sin 07/25/2020 Palpitations Naproxen 09/13/2010 Nauseas,vomiting Prednisone Other (Please comment) 09/12/2015 vomiting Shellfish Nausea/vomiting Low 09/06/2009 Sulfa Antibiotics Edema face/lips/tongue High 05/24/2012 documented as of this encounter (statuses as of 07/07/2024) Medications TRIAMCINOLONE ACETONIDE 0.1 % EX OINTIndications: Dermatitis [...] for Wheezing. 8 g 2 4 Active Cyclobenzaprine HCl 10 MG Oral Tablet (Flexeril)Indica tions:Neck pain Take 1 Tablet by mouth 2 times a day as needed for Muscle spasms. 20 Tablet 1 07/07/2024 11:10 AM EDT 5 Active Azithromycin 250 MG Oral Tablet (Zithromax Z-Joe)Indication s:Bronchitis, complicated,Low grade fever,Exposure to potential infection Take two tablets by mouth on first day, then 1 tablet daily until gone 6 Tablet 4 07/08/19 25 Discontinu ed(Medicat ion List Clean Up) documented as of this encounter (statuses as of 07/07/2024) Active Problems Problem Noted Date Diagnosed Date Chronic gastritis without bleeding 12/03/2022 Gastroesophageal reflux disease without esophagi tis 03/28/2019 Multinodular goiter 06/05/2016 GERA (generalized anxiety disorder) 05/06/2013 Allergic rhinitis 08/18/2000 documented as of this encounter (statuses as of 07/07/2024) Resolved Problems Problem Noted Date Diagnosed Date Resolved Date Persistent cough for 3 weeks or longer 06/19/2022 09/30/2022 Acute non-recurrent frontal sinusitis 06/19/2022 09/30/2022 Costochondritis 09/13/2010 05/06/2013 Threatened premature labor, antepartum 09/13/2009 10/29/2009 Overview (08/28/2020): Admitted at 27+ wks to [facility] and sent to [place] - d/c'd Cx length 1.5 cm, Cx [...] as of this encounter (statuses as of 07/07/2024) Immunizations Name Administration Dates Next Due HEP [...] ages 0-17 years) Not on file 11/30/2023 Food Insecurity Answer Date Recorded Within the past 12 months, y ou worried that your food would run out before you got the money to buy more. Never true 11/30/19 24 Within the past 12 months, t he food you bought just didn't last and you didn't have money to get more. Never true 11/30/2023 Do you need food for this week? No 11/30/2023 Comments No Sex and Gender Information Value Date Recorded Sex Assigned at Female 11/20/2022 9:18 AM EDT Legal Sex Female 7:11 AM EST Gender Identity Female 11/20/2022 9:18 AM EDT Sexual Orientation Straight 11/20/2022 9: 18 AM EDT documented as of this encounter Last Filed Vital Signs Vital Sign Reading Time Taken Comments Blood Pressure 102/70 07/07/2024 10:44 AM EDT Pulse 76 07/07/2024 10:44 AM EDT Temperature - - Respiratory Rate - - Oxygen Saturation - - Inhaled Oxygen Concentration - - Weight 69.5 kg (153 lb 2 oz) 07/07/2024 10:44 AM EDT Height - - Body Mass Index 23.98 08/17/2023 2:50 PM EDT documented in this encounter Patient Instructions * Patient Instructions* Stacy Burger MD - 07/07/2024 11:01 AM EDT Voltaren gel Heating patch Heating pad shaped for necks Shredded memory foam pillow for custom neck support. Can take 3-4 ibuprofen at a time, up to 12tabs a day. documented in this encounter Progress Notes * Stacy Burger MD - 07/07/2024 10:49 AM EDT Images from the original note were not included. Subjective Queta Pagan is a 39 year old female that presents for Back Pain (Upper back/left upper shoulder/scapula x 2 daysThinks slept on neck wrong. Pain radiates down arm. Feels like pinched nerve.) History of Present Illness The patient presents with severe left posterior shoulder / upper back pain that started two days ago after sleeping in an awkward position. She describes the pain as 'severe' and 'getting worse.' Shehas experienced similar pain in the past due to poor sleeping posture, but this episode is more intense and persistent. The pain radiates down the left arm, but resolves when she finds a comfortable position. She denies any weakness or difficulty with fine motor tasks. The pain is exacerbated by certain neck movements, particularly flexion. She has tried various [id number]-ell-yaxhgcu remedies including Tylenol, ibuprofen, a lidocaine patch, and Icy Hot, but none have provided relief. She also tried u sing a heating pad and ice. She sleeps predominantly on her left side due to severe acid reflux anduses a solid memory foam pillow. 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 Social History - Denies nicotine - Denies marijuana - Denies alcohol Current medications and allergies reviewed. Past medical history and problem list reviewed. Objective BP 102/70 | Pulse 76 | Wt 153 lb 2 oz (69.5 kg) | BMI 23.98 kg/m | BSA 1.81 m Physical Exam Vitals and nursing note reviewed. Constitutional: Appearance: Normal appearance. She is not ill-appearing. Musculoskeletal: Comments: No tenderness to palpation over C-spine and thoracic spine Decreased range of motion to neck flexion and extension, otherwise lateral extension and rotation do not cause significant pain Marked tenderness and muscle spasm palpation left trapezius (above scapula) and rhomboid Distal sensation intact bilateral upper extremities Strength 5/5 bilateral upper extremities Neurological: Mental Status: She is alert. Assessment and Plan Assessment & Plan Neck/back pain Likely due to muscle spasm irritating nerves in the brachial plexus. No weakness or red flags. Expected to resolve in weeks. Focus on pain management and mobility improvement. - Prescribed Flexeril for muscle relaxation and sleep aid. Cautioned about drowsiness and activities requiring alertness. - Advised up to 12 ibuprofen daily, 3-4 at a time with food, for pain. - Recommended Voltaren gel as topical analgesic. - Suggested heat patches or heating pads for neck discomfort. - Encouraged movement to prevent stiffness. - Advised shredded memory foam pillow for neck support. Neck pain (Primary) - Cyclobenzaprine HCl 10 MG Oral Tablet (Flexeril); Take 1 Tablet by mouth 2 times a day as needed for Muscle spasms. Wrap-Up I spent a total of 10-19 minutes (exact time 15 mins) on the date of service in preparation, delivery, and documentation of the care provided to Queta Pagan excluding any time spent in the performance of separately billed services. Text in this note was generated using an ambient documentation service. I discussed the use of a device to record and summarize our discussion today. All persons present during the encounter consented to its use. documented in this encounter Plan of Treatment Upcoming Encounters Date Type Department Care Team (Late st Contact Info) Description 09/14/2024 4:15 PM EDT Imaging Radiology [address] [facility] [address] [place] [phone] 04/14/2025 8:00 AM EST Office Visit Gynecology/Obstetrics [facility] [address] [place] [address] Backer, Kira MINOO Torres [address] [place] [address] Health Maintenance Due Date Last Done Comments [...] on patient's age to complete this topic Meningitis B Vaccine (Bexsero/Trumemba) Aged Out No longer eligible based on patient's age to complete this topic Pneumococcal Vaccine: Pediatrics (0 to 5 Years) and At-Risk Patients (6 to 18 Years and 19+ Years) Aged Out No longer eligib le based on patient's age to complete this topic documented as of this encounter Medical Devices Implanted Type Area Nurse Ob Device Identifier Shelf Expiration Date Model / Serial / Lot Patch Hernia Ventralex l - [id number] Implanted:Qty: 1 on 09/06/2019 by Jelani Rey MD at [facility] N/A: Abdomen CR BARD : DAVOL 02/21/2021 [id number] / / [id number] documented as of this encounter Visit Diagnoses Diagnosis Neck pain- Primary Cervicalgia documented in this encounter Advance Directives * [...] and were consensually agreed upon. Care Teams Cashier Or Checker Stock Clerk Relationship Specialty Start Date End Date Bhavin Garcia MD [address] [place] [phone] PCP - General Family Medicine 08/13/23 documented as of this encounter"
--- OUTSIDE RECORDS SUMMARY | 2024-07-10 08:02 | External Medical Summary | Summary of Care ---
Author Name Unknown Organization [facility] Address [address] [place] [facility] [place] [address] Phone [phone] Care Team Providers Care It Systems Analyst Name Role Phone Bhavin Garcia MD Primary Care Provider Encounter Details Date Type Department Care Team (Late st Contact Info) Description 05/18/2024 Population Health External Data Unspecified Department Allergies Active Allergy Reactions Criticality Noted Date Comments Cefaclor Other (Please comment) 11/20/2023 Takes skin off of tongue Cephalosporins Other (Please comment) Medium 06/28/1999 Takes skin off tongue Dextromethorphan-Guaifene sin 07/25/2020 Palpitations Naproxen 09/13/2010 Nauseas,vomiting Prednisone Other (Please comment) 09/12/2015 vomiting Shellfish Nausea/vomiting Low 09/06/2009 Sulfa Antibiotics Edema face/lips/tongue High 05/24/2012 documented as of this encounter (statuses as of 05/18/2024) Medications TRIAMCINOLONE ACETONIDE 0.1 % EX OINTIndications: [...] 03/17/2024 Azithromycin 250 MG Oral Tablet (Zithromax Z-Joe)Indication s:Bronchitis, complicated,Low grade fever,Exposure to potential infection Take two tablets by mouth on first day, then 1 tablet daily until gone 6 Tablet 4 Active documented as of this encounter (statuses as of 05/18/2024) Active Problems Problem Noted Date Diagnosed Date Chronic gastritis without bleeding 12/03/2022 Gastroesophageal reflux disease without esophagi tis 03/28/2019 Multinodular goiter 06/05/2016 GERA (generalized anxiety disorder) 05/06/2013 Allergic rhinitis 08/18/2000 documented as of this encounter (statuses as of 05/18/2024) Resolved Problems Problem Noted Date Diagnosed Date Resolved Date Persistent cough for 3 weeks or longer 06/19/2022 09/30/2022 Acute non-recurrent frontal sinusitis 06/19/2022 09/30/2022 Costochondritis 09/13/2010 05/06/2013 Threatened premature labor, antepartum 09/13/2009 10/29/2009 Overview (08/28/2020): Admitted at 27+ wks to [facility] and sent to [place] - d/c'd Cx length 1.5 cm, Cx [...] as of this encounter (statuses as of 05/18/2024) Immunizations Name Administration Dates Next Due HEP [...] 11/30/2023 Does the household have a re lar source of income? (Household - for ages [...] AM EDT documented as of this encounter Plan of Treatment Health Maintenance Due Date Last Done Comments [...] this encounter Medical Devices Implanted Type Area Horticulture Superintendent Device Identifier Shelf Expiration Date Model / Serial / Lot Patch Hernia Ventralex Sml - [id number] Implanted:Qty: 1 on 09/06/2019 by Jelani Rey MD at OR [facility] N/A: Abdomen CR BARD : DAVOL 02/21/2021 [id number] / / [id number] documented as of this encounter Advance Directives * Full Code [...] and were consensually agreed upon. Care Teams It Systems Analyst Relationship Specialty Start Date End Date Bhavin Garcia MD [address] [phone] PCP - General Family Medicine 08/13/23 documented as of this encounter
--- NOTE | 2024-07-10 08:31 | Emergency Department Note ---
Impression & Plan Cervical disc herniation, Left cervical radiculopathy, Intractable pain ED Provider Note CHIEF COMPLAINT: Left-sided neck/upper back pain radiating into the left arm x 1 week HPI: Patient is a [id number] otherwise healthy 39-year-old female who presents to the emergency department for evaluation of left-sided neck/upper back pain that radiates into the left arm. Her symptoms started a little under a week ago. She was having some soreness in the left side of her neck at the beginning of the week, pain got worse on Thursday, 5 days ago, and began to radiate into the left arm. She was seen by PCP on , and given a prescription for Flexeril. She has been using ibuprofen 600 mg twice daily, alternating with Tylenol, she is using the cyclobenzaprine at bedtime. She is tried ice, heat, Voltaren gel, IcyHot and lidocaine patches, all without relief. Her pain is getting worse. She states it is located in the left upper back, near the scapula and radiates down the left arm into her fingers. There is some tingling in her hand, but no shena weakness. She has some tightness in the left upper back when she moves her head/neck, but she does not have any distinct left shoulder pain when she moves the left arm. She does lay on her left side to sleep and thinks that her pain could have been brought on by sleeping awkwardly. She is never had pain like this previously. She denies any injury to the area, no heavy lifting or repetitive movements or unusual activity otherwise. 02/03. REVIEW OF SYSTEMS: Review of systems as per HPI. All other systems reviewed were negative. 10 systems reviewed. PMH: External medical records are reviewed and summarized as above/below. See Problem List. SOCIAL HISTORY: Patient lives at home with family. Employed. Non-smoker. PHYSICAL EXAM: Vital Signs: Reviewed Nurse's notes. CONSTITUTIONAL: Tearful 39-year-old female who is awake and alert and seated on the gurney. SPINE: Normal cervical lordosis. Mild midline tenderness to palpation over the lower cervical spinous processes, without step-off deformity. Mild left-sided paraspinous muscle tenderness in the cervical region. Full cervical spine range of motion, and has discomfort in the left neck musculature with flexion, extension and rotation. There is left sided thoracic tenderness to palpation and spasm in the rhomboid region. HEART: Regular rate and rhythm. LUNGS: Clear to auscultation. MUSCULOSKELETAL: Left shoulder is healthy in appearance, no obvious deformity. No tenderness to palpation over the clavicle, the AC joint or the proximal humerus/rotator cuff insertion. Shoulder range of motion is full. Strength to resisted shoulder flexion/abduction, elbow flexion/extension, wrist flexion/extension, intrinsic hand strength, net trainer strength, and thumb opposition is 5/5 bilaterally, although strength and range of motion testing of the left upper extremity induced discomfort in the left upper back. Biceps and brachioradialis DTRs are 2+ bilaterally. Bilateral upper extremities are neurovascularly intact. EMERGENCY DEPARTMENT COURSE: The patient was seen and assessed as above. External medical records are reviewed. She presents to the emergency department for evaluation of left-sided neck/upper back pain that radiates into the left arm. She has reproducible tenderness in the left trapezius/left upper back area. Fortunately, no weakness or impaired reflexes in the left arm. I do suspect her symptoms are more related to the upper back/neck region as opposed to shoulder pathology. She was treated with IM Toradol, morphine, Decadron and ODT Zofran. X-rays of the left shoulder and cervical spine were obtained. Nursing staff contacted me, that when the patient was taken over for x-ray, she got near syncopal, and became slightly hypotensive, blood pressure normalized on its own without intervention. I suspect this is related to the morphine. Left shoulder x-ray per my interpretation no acute fracture or bony abnormality. Cervical spine x-rays per my interpretation note degenerative changes at the C5-6 and C6-7 levels. Patient returned from x-ray, reported no relief in her pain with the above- mentioned medications, rating her pain a 10/10. X-ray findings reviewed with the patient. Pain management options discussed. Ideally, patient would like to go home. She was given 10 mg of oxycodone p.o. After about 45 minutes, patient was still reporting no relief of her pain. Saline lock was placed. She was given 0.5 mg Dilaudid IV. Cervical spine MRI was ordered. Patient was given Valium 10 mg IV prior to MRI for pain/spasm in the neck and upper back. Laboratory studies per my interpretation note a mild leukocytosis 12.4, with neutrophilic predominance. No electrolyte imbalance on BMP. Cervical spine MRI per my interpretation note left intervertebral disc extrusion at C6-C7 with exiting nerve root impingement. Additional degenerative disc disease at C5-C6. Patient was reassessed. MRI findings were reviewed with her. I was able to review the patient's presentation and MRI findings with Dr. Finch with orthopedic spine surgery, who notes that often this type of presentation will require surgical intervention. He agrees with admission for pain management if needed, and would be happy to consult. Patient was reassessed. Conversation with orthopedic spine reviewed with her and treatment options discussed. Ultimately, the patient is still quite uncomfortable, despite multiple medications/doses of NSAIDs, narcotics, steroids and benzodiazepine. I do not feel that she would be able to be made comfortable at home with p.o. medications. Admission/observation was discussed with the patient and she was agreeable. She was given an additional Dilaudid 0.5 mg IV. Patient reviewed with ED manager rn case and [facility] was consulted for admission. Patient reviewed with Dr. Freire. Differential diagnoses entertained included cervical spinal stenosis, cervical disc herniation, cervical radiculopathy, nerve root compression, cord compression, calcific tendinitis, rotator cuff pathology, muscle strain/spasm, among others. Past Med/Surg History Problem List (Updated 07/10/24 @ 16:13 by Graham Looney) Intractable pain (Acute) Left cervical radiculopathy (Acute) Cervical disc herniation (Acute) Medical History No significant past medical history Surgical History Status post breast lumpectomy History of hernia repair H/O section History of partial thyroidectomy Social History Smoking Status: Never smoker Preferred Language: Mosotho Feels Safe at Home: Yes Allergies Allergies Allergy/AdvReac Type Severity Reaction Status Date / Time cefaclor Allergy Mild Verified 09/15/14 09:39 naproxen Allergy Mild ? Verified 09/15/14 09:39 Cephalosporins Allergy Unknown TAKES SKIN Verified 09/15/14 09:39 OFF TONGUE SULFA Allergy Intermediate TAKES SKIN Uncoded 08/05/12 07:35 OFF HER TONGUE Home Meds Home Medications Medication Instructions Recorded Confirmed omeprazole 20 mg PO QAM #0 caps 02/06/14 07/10/24 Tylenol 1,000 mg PO DIRECTED PRN Pain 09/15/14 07/10/24 #0 tabs ibuprofen 600 mg PO BID PRN Pain #0 tabs 09/15/14 07/10/24 cyclobenzaprine 10 mg tablet 10 mg PO DIRECTED 07/10/24 07/10/24 Previous Rx's Medication Instructions Recorded ONDANSETRON (ZOFRAN ODT) 4 mg sublingual Q4 PRN nausea #10 09/15/14 tabs Results & Data (ED) Vital Signs Vital Signs - 24 hr 07/10/24 07:57 07/10/24 07:57 07/10/24 09:14 Temperature 36.7 C Temperature Source Temporal Artery Scan Pulse Rate 101 H Pulse Rate [Left] 86 54 L Pulse Rhythm [Left] Regular Pulse Strength [Left] Normal Respiratory Rate 18 20 20 Respiratory Effort / Characteristics Non-Labored Spontaneous Respiratory Depth Normal Respiratory Pattern Regular Blood Pressure 115/71 Blood Pressure [Left Arm] 97/73 L 84/50 L Blood Pressure Mean 85 Blood Pressure Mean [Left Arm] 81 61 Blood Pressure Position [Left Arm] Sitting Pulse Oximetry 96 95 94 Oxygen Delivery Method Room Air Room Air Sepsis New/Unexplained Change in Mental Status No Sepsis Action Taken by Nursing No Action Required 07/10/24 09:21 07/10/24 10:57 07/10/24 12:00 Temperature Temperature Source Pulse Rate Pulse Rate [Left] 56 L 82 65 Pulse Rhythm [Left] Regular Pulse Strength [Left] Normal Respiratory Rate 18 16 20 Respiratory Effort / Characteristics Non-Labored Spontaneous Respiratory Depth Normal Respiratory Pattern Regular Blood Pressure Blood Pressure [Left Arm] 101/63 97/60 L 107/100 Blood Pressure Mean Blood Pressure Mean [Left Arm] 75 72 102 Blood Pressure Position [Left Arm] Sitting Pulse Oximetry 94 96 94 Oxygen Delivery Method Room Air Room Air Room Air Sepsis New/Unexplained Change in Mental Status Sepsis Action Taken by Nursing 07/10/24 12:09 07/10/24 14:00 07/10/24 16:00 Temperature Temperature Source Pulse Rate 82 Pulse Rate [Left] 74 85 Pulse Rhythm [Left] Regular Pulse Strength [Left] Normal Respiratory Rate 20 18 Respiratory Effort / Characteristics Non-Labored Spontaneous Respiratory Depth Normal Respiratory Pattern Regular Blood Pressure Blood Pressure [Left Arm] 105/64 116/71 Blood Pressure Mean Blood Pressure Mean [Left Arm] 77 86 Blood Pressure Position [Left Arm] Sitting Pulse Oximetry 94 94 Oxygen Delivery Method Room Air Room Air Sepsis New/Unexplained Change in Mental Status Sepsis Action Taken by Nursing 07/10/24 16:08 Temperature Temperature Source Pulse Rate 82 Pulse Rate [Left] Pulse Rhythm [Left] Pulse Strength [Left] Respiratory Rate Respiratory Effort / Characteristics Respiratory Depth Respiratory Pattern Blood Pressure Blood Pressure [Left Arm] Blood Pressure Mean Blood Pressure Mean [Left Arm] Blood Pressure Position [Left Arm] Pulse Oximetry Oxygen Delivery Method Sepsis New/Unexplained Change in Mental Status Sepsis Action Taken by [facility] Medications Current Medication List: was personally reviewed by me Laboratory Data Attestation: I reviewed the patient's lab results. 07/10/24 12:07 07/10/24 12:07 Lab Results 07/10/24 Range/Units 12:07 WBC 12.44 H (4.8-10.8) K/ul RBC 4.61 (4.20-5.40) M/uL Hgb 14.0 (12.0-16.0) g/dl Hct 41.4 (37.0-47.0) % MCV 89.8 (80.0-100.0) fL MCH 30.4 (25.0-34.0) pg MCHC 33.8 (32.0-36.0) g/dL RDW Std Deviation 38.6 (36.4-46.3) fL RDW Coeff of Rob 11.8 (11.5-14.5) % Plt Count 247 (130-400) K/uL MPV 11.1 (9.4-12.4) fL Immature Gran % (Auto) 0.3 % Neut % (Auto) 93.1 % Lymph % (Auto) 5.1 % Otoe % (Auto) 1.2 % Eos % (Auto) 0.1 % Baso % (Auto) 0.2 % Neut # (Auto) 11.59 H (1.40-6.50) K/uL Lymph # (Auto) 0.63 L (1.20-3.40) K/uL O[place]e # (Auto) 0.15 (0.11-0.59) K/uL Eos # (Auto) 0.01 (0.00-0.50) K/uL Baso # (Auto) 0.02 (0.00-0.20) K/uL Immature Gran # (Auto) 0.04 (0.01-0.20) K/uL RBC Morphology Unremarkable Sodium 138 (136-145) mmol/L Potassium 4.1 (3.5-5.1) mmol/L Chloride 107 (98-107) mmol/L Carbon Dioxide 28 (21-32) mmol/L Anion Gap 3 (3-11) BUN 16 (6-23) mg/dl Creatinine 0.77 (0.6-1.2) mg/dl Est Cr Clr Drug Dosing 93.5 ml/min eGFR 99.32 BUN/Creatinine Ratio 20.8 H (10-20) Glucose 128 H (70-99(Fasting)) mg/dl Calcium 9.1 (8.6-10.3) mg/dl HCG, Qual Negative (Negative) Administered Medications Discontinued Medications Dexamethasone Sodium Phosphate (DexamethasonePf 10 Mg/Ml Vial) 10 mg IM NOW ONE Stop: 07/10/24 08:26 Last Admin: 07/10/24 08:39 Dose: 10 mg Documented By: TERA Diazepam (Diazepam 5 Mg/Ml 10ml Vial) 10 mg IV NOW STA Stop: 07/10/24 12:45 Last Admin: 07/10/24 12:53 Dose: 10 mg Documented By: TERA Hydromorphone HCl (Hydromorphone Inj 0.5 Mg/0.5 Ml Syr) 0.5 mg IV NOW STA Stop: 07/10/24 11:44 Last Admin: 07/10/24 11:59 Dose: 0.5 mg Documented By: TERA Hydromorphone HCl (Hydromorphone Inj 0.5 Mg/0.5 Ml Syr) 0.5 mg IV NOW STA Stop: 07/10/24 15:49 Last Admin: 07/10/24 16:05 Dose: 0.5 mg Documented By: NRB Ketorolac Tromethamine (Ketorolac Tromethamine 60 Mg/2 Ml Vial) 60 mg IM NOW STA Stop: 07/10/24 08:26 Last Admin: 07/10/24 08:38 Dose: 60 mg Documented By: TERA Morphine Sulfate (Morphine Sulfate 4 Mg/Ml 1 Ml Carp\Vial) 4 mg IM NOW STA Stop: 07/10/24 08:26 Last Admin: 07/10/24 08:39 Dose: 4 mg Documented By: TERA Ondansetron HCl (Ondansetron 4 Mg Od Tab) 4 mg PO NOW STA Stop: 07/10/24 08:26 Last Admin: 07/10/24 08:38 Dose: 4 mg Documented By: TERA Oxycodone HCl (Oxycodone Hcl Ir 5 Mg Tab (Immediate Release)) 10 mg PO NOW STA Stop: 07/10/24 10:47 Last Admin: 07/10/24 10:51 Dose: 10 mg Documented By: TERA Imaging Data Attestation: I personally reviewed and interpreted this imaging study as follows: Radiologist's Impression: Cervical Spine X-Ray 07/10/24 08:25 HISTORY: Left neck pain. TECHNIQUE: Cervical spine, 7 views. COMPARISON: None. FINDINGS: Mild reversal of cervical curvature. No significant listhesis. The vertebral body heights are maintained without compression deformity. Mild to moderate degenerative disc disease at C5-6. Mild degenerative disc disease at C6-7.The included lung apices are clear. The prevertebral soft tissues are normal in thickness. Radiopaque dental amalgam. IMPRESSION: * No acute osseous abnormality. * Mild reversal of cervical curvature is favored to be degenerative. * Moderate degenerative disc disease at C5-6 and mild degenerative disc disease at C6-7. Electronically signed by Philip Mazariegos 07-10-2024 10:19 AM Shoulder X-Ray 07/10/24 08:25 HISTORY: Left arm pain. TECHNIQUE: Left shoulder, 3 views. COMPARISON: None. FINDINGS: No acute fracture or dislocation. The joint spaces are maintained. Alignment is preserved. The included lungs/ribs appear unremarkable. IMPRESSION: No acute osseous abnormality. Electronically signed by Philip Mazariegos 07-10-2024 10:18 AM Cervical Spine MRI 07/10/24 11:43 EXAMINATION: MRI cervical spine without contrast CLINICAL HISTORY: Woke up today with severe left neck pain radiating down the left arm, worsening left shoulder pain since last Thursday. PRIORS: Plain film today TECHNIQUE: Multiplanar multisequence imaging was obtained through the cervical spine without the use of intravenous contrast. FINDINGS: Motion artifact noted due to pain. Alignment: Lordotic straightening noted. Bone marrow signal: No edema Cervical cord: Allowing for CSF pulsation artifact, cervical cord is normal in size and signal intensity. No demyelinating plaques. Low-lying cerebellar tonsils: No Intervertebral disc signal: Normal Dens: Intact. C2-C3: Unremarkable C3-C4: Unremarkable C4-C5: Unremarkable C5-C6: An annular tear is present with a central to right foraminal intervertebral disc protrusion and uncovertebral hypertrophic changes. Neural foraminal stenosis is noted with impingement on the exiting right nerve root. No free disc fragment. C6-C7 a left paracentral to foraminal intervertebral disc extrusion is present, image 8, series 6 and image 22, series 8 with left exiting nerve root impingement. No free disc fragment. Incidentally, right lobe thyroid cysts are noted in the [id number], image 25, series 8. IMPRESSION: 1. Left intervertebral disc extrusion at C6-C7 with exiting nerve root impingement. No free disc fragment. 2. Degenerative disc disease at C5-C6 with right intervertebral disc protrusion which comes into contact with the right exiting nerve root. 3. Left thyroid cyst which could be further evaluated with dedicated ultrasound if appropriate. ACT 112: Positive. There are findings on this examination that require communication between the performing entity and the patient following Patient Test Result Information Act ([place] ACT 112) guidelines. Electronically signed by Queenie Verdugo 07-10-2024 2:30 PM Discharge Plan Visit Data Chief Complaint: Shoulder Pain Stated Complaint: LEFT SHOULDER/ARM PAIN ED Provider: [facility] Midlevel Provider: Graham Looney Discharge Problem: Cervical disc herniation, Left cervical radiculopathy, Intractable pain Patient Disposition: Being Evaluated by Hospitalist Forms Stand Alone Forms: [facility] Prescriptions Prescriptions: No Action omeprazole 20 MG CONTR REL CAP 20 mg PO QAM Qty: 0 Rx Instructions: no fill history/otc Tylenol 500 MG tablet 1,000 mg PO DIRECTED PRN (Reason: Pain) Qty: 0 ibuprofen 200 MG tablet 600 mg PO BID PRN (Reason: Pain) Qty: 0 ONDANSETRON (ZOFRAN ODT) 4 MG tablet 4 mg Sublingual Q4 PRN (Reason: nausea) Qty: 10 0RF Rx Instructions: no fill history available cyclobenzaprine 10 mg tablet 10 mg PO DIRECTED Referrals Referrals: PCP,NO [Physician] -
[2024-07-10] MEDS: ONDANSETRON 4 MG OD TAB PO STA (08:38)
[2024-07-10] MEDS: KETOROLAC TROMETHAMINE 60 MG/2 ML VIAL IM STA (08:38)
[2024-07-10] MEDS: dexAMETHasone**PF** 10 MG/ML VIAL IM ONE (08:39)
[2024-07-10] MEDS: MoRPHine SULFATE 4 MG/ML 1 ML CARP\\VIAL IM STA (08:39)
--- NOTE | 2024-07-10 10:18 | XRay Report ---
HISTORY: Left arm pain. TECHNIQUE: Left shoulder, 3 views. COMPARISON: None. FINDINGS: No acute fracture or dislocation. The joint spaces are maintained. Alignment is preserved. The included lungs/ribs appear unremarkable. IMPRESSION: No acute osseous abnormality. Electronically signed by Philip Mazariegos 07-10-2024 10:18 AM
--- NOTE | 2024-07-10 10:19 | XRay Report ---
HISTORY: Left neck pain. TECHNIQUE: Cervical spine, 7 views. COMPARISON: None. FINDINGS: Mild reversal of cervical curvature. No significant listhesis. The vertebral body heights are maintained without compression deformity. Mild to moderate degenerative disc disease at C5-6. Mild degenerative disc disease at C6-7.The included lung apices are clear. The prevertebral soft tissues are normal in thickness. Radiopaque dental amalgam. IMPRESSION: * No acute osseous abnormality. * Mild reversal of cervical curvature is favored to be degenerative. * Moderate degenerative disc disease at C5-6 and mild degenerative disc disease at C6-7. Electronically signed by Philip Mazariegos 07-10-2024 10:19 AM
[2024-07-10] MEDS: oxyCODONE HCL IR 5 MG TAB (IMMEDIATE RELEASE) PO STA (10:51)
[2024-07-10] MEDS: HYDROmorphone INJ 0.5 MG/0.5 ML SYR IV STA ×2 (11:59→16:05)
[2024-07-10 12:27] LABS: Hematocrit (blood only) 41.4 % (37.0-47.0); Mean Corpuscular Hemoglobin 30.4 pg (25.0-34.0); Mean Corpuscular Hgb Conc 33.8 g/dL (32.0-36.0); Mean Corpuscular Volume 89.8 fL (80.0-100.0); Mean Platelet Volume 11.1 fL (9.4-12.4); Platelet Count 247 K/uL (130-400); RDW Coefficient of Variation 11.8 % (11.5-14.5); RDW Standard Deviation 38.6 fL (36.4-46.3); Red Blood Count 4.61 M/uL (4.20-5.40); White Blood Count 12.44 K/ul (4.8-10.8)
[2024-07-10 12:43] LABS: Pregnancy Test, Serum Negative (Negative)
[2024-07-10 12:45] LABS: BUN Creatinine Ratio 20.8 (10-20); Calcium 9.1 mg/dl (8.6-10.3); Creatinine Clr Calc Pharmacy 93.5 ml/min; Potassium 4.1 mmol/L (3.5-5.1)
[2024-07-10] MEDS: diazePAM 5 MG/ML 10ML VIAL IV STA (12:53)
[2024-07-10 13:08] LABS: Basophils # (auto) 0.02 K/uL (0.00-0.20); Basophils % (auto) 0.2 %; Eosinophils # (auto) 0.01 K/uL (0.00-0.50); Eosinophils % (auto) 0.1 %; Immature Granulocytes # (auto) 0.04 K/uL (0.01-0.20); Immature Granulocytes % (auto) 0.3 %; Lymphocytes # (auto) 0.63 K/uL (1.20-3.40); Lymphocytes % (auto) 5.1 %; Monocytes # (auto) 0.15 K/uL (0.11-0.59); Monocytes % (auto) 1.2 %; Neutrophils # (auto) 11.59 K/uL (1.40-6.50); Neutrophils % (auto) 93.1 %; RBC Morphology Unremarkable
--- NOTE | 2024-07-10 14:31 | Magnetic Resonance Report ---
EXAMINATION: MRI cervical spine without contrast CLINICAL HISTORY: Woke up today with severe left neck pain radiating down the left arm, worsening left shoulder pain since last Thursday. PRIORS: Plain film today TECHNIQUE: Multiplanar multisequence imaging was obtained through the cervical spine without the use of intravenous contrast. FINDINGS: Motion artifact noted due to pain. Alignment: Lordotic straightening noted. Bone marrow signal: No edema Cervical cord: Allowing for CSF pulsation artifact, cervical cord is normal in size and signal intensity. No demyelinating plaques. Low-lying cerebellar tonsils: No Intervertebral disc signal: Normal Dens: Intact. C2-C3: Unremarkable C3-C4: Unremarkable C4-C5: Unremarkable C5-C6: An annular tear is present with a central to right foraminal intervertebral disc protrusion and uncovertebral hypertrophic changes. Neural foraminal stenosis is noted with impingement on the exiting right nerve root. No free disc fragment. C6-C7 a left paracentral to foraminal intervertebral disc extrusion is present, image 8, series 6 and image 22, series 8 with left exiting nerve root impingement. No free disc fragment. Incidentally, right lobe thyroid cysts are noted in the [id number], image 25, series 8. IMPRESSION: 1. Left intervertebral disc extrusion at C6-C7 with exiting nerve root impingement. No free disc fragment. 2. Degenerative disc disease at C5-C6 with right intervertebral disc protrusion which comes into contact with the right exiting nerve root. 3. Left thyroid cyst which could be further evaluated with dedicated ultrasound if appropriate. ACT 112: Positive. There are findings on this examination that require communication between the performing entity and the patient following Patient Test Result Information Act ([place] ACT 112) guidelines. Electronically signed by Queenie Verdugo 07-10-2024 2:30 PM
--- NOTE | 2024-07-10 17:45 | History & Physical Report ---
Date of Service July 10, 2024 Assessment & Plan (1) Left cervical radiculopathy: Plan: -intractable left shoulder pain radiating down left arm -correlates with MRI findings of impingement from C5-C7 -disccused with ortho spine, may do procedure if pain does not control Plan: -regular diet for now, since ortho spine will not see until tomorrow -pain control as below -PT/OT ordered (2) Intractable pain: Plan: -primarily neuropathic in nature with nociceptive component -has imaging correlate -patient gets upset stomach with tylenol Plan: -start decadron at 4mg q8hrs scheduled for inflammatory pain -start toradol q8hrs scheduled for inflammatory pain -start dilaudid 3mg PO q3hr prn for severe pain, 0.75 mg q3hr prn for breakthrough pain (0.5 mg only somewhat effective) -start pregablin 25mg tid for neuropathic component of pain (3) Cervical disc herniation: Plan: -see above Plan Feeding/fluids: regular Analgesia: see above Sedation: na Thromboprophylaxis: start lovenox Head up position: na Ulcer prophylaxis: patient did not want protonix Glycemic control: na Spontaneous breathing trial: na Bowel care: miralax prn Indwelling catheter removal: na Deescalation of antibiotics: na I spent a total of 80 minutes in direct patient care, including [id number] time with the patient and/or family, reviewing medical records, ordering and reviewing diagnostic tests, and coordinating care with other healthcare providers. This time includes: history taking, physical examination, medical decision making, counseling, ECG interpretation, imaging interpretation, lab interpretation, orders, and education, excluding time spent in the performance of separately billed services. History of Present Illness Chief Complaint: -left arm pain Primary Care Provider: Bhavin Garcia 39 yo female with pmhx of GERD, multinodular goiter, and GERA who presents with left arm pain. She states pain started this past Thursday with some tingling, then got worse on , and has just gotten worse since. Describes pain as stabbing pain, with tingling and burning components. States this has never happ ened before. Denies any systemic symptoms. Pain bad at rest but much worse with movement. No tobacco use, no alcohol use, no drug use, full code. Allergies Allergy/AdvReac Type Severity Reaction Status Date / Time cefaclor Allergy Mild Verified 09/15/14 09:39 naproxen Allergy Mild ? Verified 09/15/14 09:39 Cephalosporins Allergy Unknown TAKES SKIN Verified 09/15/14 09:39 OFF TONGUE SULFA Allergy Intermediate TAKES SKIN Uncoded 08/05/12 07:35 OFF HER TONGUE Home Medications Medication Instructions Recorded Confirmed Type omeprazole 20 mg PO QAM #0 caps 02/06/14 07/10/24 History ONDANSETRON (ZOFRAN ODT) 4 mg sublingual Q4 PRN nausea #10 09/15/14 07/10/24 Rx tabs Tylenol 1,000 mg PO DIRECTED PRN Pain 09/15/14 07/10/24 History #0 tabs ibuprofen 600 mg PO BID PRN Pain #0 tabs 09/15/14 07/10/24 History cyclobenzaprine 10 mg tablet 10 mg PO DIRECTED 07/10/24 07/10/24 History Past Med/Surg History Problem List (Updated 07/10/24 @ 16:13 by Graham Looney) Intractable pain (Acute) Left cervical radiculopathy (Acute) Cervical disc herniation (Acute) Medical History No significant past medical history Surgical History Status post breast lumpectomy History of hernia repair H/O section History of partial thyroidectomy Social History Smoking Status: Never smoker Hx Alcohol Use: No Hx Substance Use: No Preferred Language: Yemeni Communication Ability: Effective Marketing Director Required: No Beliefs That Will Affect Care: None Current Living Situation: Spouse Feels Safe at Home: Yes Review of Systems Review of Systems: CONSTITUTIONAL: Patient denies fevers, chills, sweats and weight changes. EYES: Patient denies any visual symptoms. EARS, NOSE, AND THROAT: No difficulties with hearing. No symptoms of rhinitis or sore throat. CARDIOVASCULAR: Patient denies chest pains, palpitations, orthopnea and paroxysmal nocturnal dyspnea. RESPIRATORY: No dyspnea on exertion, no wheezing or cough. GI: No nausea, vomiting, diarrhea, constipation, abdominal pain, hematochezia or melena. : No urinary hesitancy or dribbling. No nocturia or urinary frequency. No abnormal urethral discharge. MUSCULOSKELETAL: left arm pain NEUROLOGIC: No chronic headaches, no seizures. Patient denies numbness, tingling or weakness. PSYCHIATRIC: Patient denies problems with mood disturbance. No problems with anxiety. ENDOCRINE: No excessive urination or excessive thirst. DERMATOLOGIC: Patient denies any rashes or skin changes. Physical Exam Physical Exam: Gen: A&O 3 NAD HEENT: NCAT, EOMI, not icteric. External ears normal. No rhinorrhea. Moist mucous membranes. Neck: Supple, full range of motion, no observable masses, No meningeal sign. Lungs: No Respiratory distress. CV: RRR, no edema. Abdomen: Soft, nondistended, No rebound tenderness. MSK: left arm pain with movement and palpation Skin: No rashes, petechiae, lesions. Normal color per patient. Neuro: Normal Gait, Grossly intact. Psych: Appropriate for situation. Results & Data Results & Data Vital Signs (Past 12 Hours) Vital Signs Temp Pulse Pulse Resp BP BP Pulse Ox 07/10/24 16:55 86 16 111/68 95 07/10/24 16:08 82 07/10/24 16:00 85 18 116/71 94 07/10/24 14:00 74 20 105/64 94 07/10/24 12:09 82 07/10/24 12:00 65 20 107/100 94 07/10/24 10:57 82 16 97/60 L 96 07/10/24 09:21 56 L 18 101/63 94 07/10/24 09:14 54 L 20 84/50 L 94 07/10/24 07:57 86 20 97/73 L 95 07/10/24 07:57 36.7 C 101 H 18 115/71 96 O2 Del Method 07/10/24 16:55 Room Air 07/10/24 16:08 07/10/24 16:00 Room Air 07/10/24 14:00 Room Air 07/10/24 12:09 07/10/24 12:00 Room Air 07/10/24 10:57 Room Air 07/10/24 09:21 Room Air 07/10/24 09:14 Room Air 07/10/24 07:57 07/10/24 07:57 Room Air Laboratory Results -personally reviewed, leukocytosis likely reactive to steroids, creatinine WNL Diagnostic Findings Cervical Spine X-Ray 07/10/24 08:25 HISTORY: Left neck pain. TECHNIQUE: Cervical spine, 7 views. COMPARISON: None. FINDINGS: Mild reversal of cervical curvature. No significant listhesis. The vertebral body heights are maintained without compression deformity. Mild to moderate degenerative disc disease at C5-6. Mild degenerative disc disease at C6-7.The included lung apices are clear. The prevertebral soft tissues are normal in thickness. Radiopaque dental amalgam. IMPRESSION: * No acute osseous abnormality. * Mild reversal of cervical curvature is favored to be degenerative. * Moderate degenerative disc disease at C5-6 and mild degenerative disc disease at C6-7. Electronically signed by Philip Mazariegos 07-10-2024 10:19 AM Shoulder X-Ray 07/10/24 08:25 HISTORY: Left arm pain. TECHNIQUE: Left shoulder, 3 views. COMPARISON: None. FINDINGS: No acute fracture or dislocation. The joint spaces are maintained. Alignment is preserved. The included lungs/ribs appear unremarkable. IMPRESSION: No acute osseous abnormality. Electronically signed by Philip Mazariegos 07-10-2024 10:18 AM Cervical Spine MRI 07/10/24 11:43 EXAMINATION: MRI cervical spine without contrast CLINICAL HISTORY: Woke up today with severe left neck pain radiating down the left arm, worsening left shoulder pain since last Thursday. PRIORS: Plain film today TECHNIQUE: Multiplanar multisequence imaging was obtained through the cervical spine without the use of intravenous contrast. FINDINGS: Motion artifact noted due to pain. Alignment: Lordotic straightening noted. Bone marrow signal: No edema Cervical cord: Allowing for CSF pulsation artifact, cervical cord is normal in size and signal intensity. No demyelinating plaques. Low-lying cerebellar tonsils: No Intervertebral disc signal: Normal Dens: Intact. C2-C3: Unremarkable C3-C4: Unremarkable C4-C5: Unremarkable C5-C6: An annular tear is present with a central to right foraminal intervertebral disc protrusion and uncovertebral hypertrophic changes. Neural foraminal stenosis is noted with impingement on the exiting right nerve root. No free disc fragment. C6-C7 a left paracentral to foraminal intervertebral disc extrusion is present, image 8, series 6 and image 22, series 8 with left exiting nerve root impingement. No free disc fragment. Incidentally, right lobe thyroid cysts are noted in the [id number], image 25, series 8. IMPRESSION: 1. Left intervertebral disc extrusion at C6-C7 with exiting nerve root impingement. No free disc fragment. 2. Degenerative disc disease at C5-C6 with right intervertebral disc protrusion which comes into contact with the right exiting nerve root. 3. Left thyroid cyst which could be further evaluated with dedicated ultrasound if appropriate. ACT 112: Positive. There are findings on this examination that require communication between the performing entity and the patient following Patient Test Result Information Act ([place] ACT 112) guidelines. Electronically signed by Queenie Verdugo 07-10-2024 2:30 PM -personally reviewed, exiting nerve root impingement noted at C6-C7 consistent with pain, Code Status & VTE Plan Code Status -full code
[2024-07-10] MEDS ORDERED: POLYETHYLENE (MIRALAX) 17 GM PACK PO PRN (18:03)
[2024-07-10] MEDS: HYDROmorphone HCL 2 MG TAB PO PRN (19:10)
[2024-07-10] MEDS: PREGABALIN 25 MG CAP PO SCH (21:16)
[2024-07-10] MEDS: MELATONIN 3 MG TAB PO PRN (21:16)
[2024-07-10] MEDS: KETOROLAC TROMETHAMINE 15 MG/ML VIAL IV SCH (21:16)
[2024-07-10] MEDS ORDERED: ACETAMINOPHEN 500 MG TAB PO SCH (22:00)
[2024-07-10] MEDS: dexAMETHasone 4 MG in SYRINGE 0 ML IV SCH (22:18)
[2024-07-11] MEDS: HYDROmorphone INJ 0.5 MG/0.5 ML SYR IV PRN (02:58)
[2024-07-11 07:33] LABS: Hematocrit (blood only) 41.1 % (37.0-47.0); Hemoglobin 13.9 g/dl (12.0-16.0); Mean Corpuscular Hemoglobin 30.4 pg (25.0-34.0); Mean Corpuscular Hgb Conc 33.8 g/dL (32.0-36.0); Mean Corpuscular Volume 89.9 fL (80.0-100.0); Mean Platelet Volume 11.8 fL (9.4-12.4); Platelet Count 266 K/uL (130-400); RDW Coefficient of Variation 11.7 % (11.5-14.5); RDW Standard Deviation 38.4 fL (36.4-46.3); Red Blood Count 4.57 M/uL (4.20-5.40); White Blood Count 17.14 K/ul (4.8-10.8)
[2024-07-11 07:45] LABS: Prothrombin Time 11.1 Seconds (9.0-12.0)
[2024-07-11 08:20] LABS: BUN Creatinine Ratio 30.5 (10-20); Calcium 9.4 mg/dl (8.6-10.3); Creatinine Clr Calc Pharmacy 87.8 ml/min; Potassium 4.2 mmol/L (3.5-5.1)
[2024-07-11] MEDS ORDERED: PANTOprazole 40 MG TAB PO SCH (09:00)
[2024-07-11] MEDS: ENOXAPARIN INJ 40 MG/0.4 ML SYR SQ SCH (09:09)
--- NOTE | 2024-07-11 09:56 | Orthopedic Consultation ---
Date of Consultation July 11, 2024 Assessment & Plan (1) Herniation of cervical intervertebral disc with radiculopathy: Assessment Sharon nucleus pulposus C6-C7 left with a fragment migrating caudally. Plan at this time in length yesterday with the patient and her to review MRI findings x-rays and clinical course. This time she could continue with medical management. We discussed possible cervical injections versus ultimately surgical invention. This time she rates her pain at 8-10 out of 10. She is finding little response from the steroids and IV narcotics. She would like to consider surgical invention. Would require an anterior cervical discectomy and fusion C6-C7. Risk benefits pros cons and alternatives were aligned in detail. Risk include but not limited to anesthesia blindness stroke process nerve damage blood loss requiring transfusion infection requiring reoperation dysphonia dysphagia. Best with a marked improvement of her radicular pattern. This time she would like to consider surgery. In light of her progressive motor deficit and refractory pain this is reasonable. She was made n.p.o. from after midnight plan for surgery tomorrow. Lastly I do disagree with the interpretation of the MRI. She does have a fragment of disc material on the left that has migrated caudally in addition to foraminal encroachment at C6-C7. History of Present Illness Reason for Consultation: Severe left arm pain Attending Physician: Boogie Anderson MD History of Present Illness This is a 39-year-old female presents emergency room yesterday with the onset of severe left arm pain. The pain progressed over the past several days. She denies any specific trauma fall or event. The pain is incapacitating in nature. She has been unresponsive to narcotic medications as well as steroids. The pain involves the neck rating down the posterior arm into all of her fingers. It does not affect the right upper extremity. She is right-hand dominant. She notices intermittent tingling in addition to the pain. Allergies Allergy/AdvReac Type Severity Reaction Status Date / Time cefaclor Allergy Mild Verified 09/15/14 09:39 naproxen Allergy Mild ? Verified 09/15/14 09:39 Cephalosporins Allergy Unknown TAKES SKIN Verified 09/15/14 09:39 OFF TONGUE SULFA Allergy Intermediate TAKES SKIN Uncoded 08/05/12 07:35 OFF HER TONGUE Home Medications Medication Instructions Recorded Confirmed Type omeprazole 20 mg PO QAM #0 caps 02/06/14 07/10/24 History ONDANSETRON (ZOFRAN ODT) 4 mg sublingual Q4 PRN nausea #10 09/15/14 07/10/24 Rx tabs Tylenol 1,000 mg PO DIRECTED PRN Pain 09/15/14 07/10/24 History #0 tabs ibuprofen 600 mg PO BID PRN Pain #0 tabs 09/15/14 07/10/24 History cyclobenzaprine 10 mg tablet 10 mg PO DIRECTED 07/10/24 07/10/24 History Patient History Medical History No significant past medical history Surgical History Status post breast lumpectomy History of hernia repair H/O section History of partial thyroidectomy Social History Smoking Status: Never smoker Hx Alcohol Use: No Hx Substance Use: No Preferred Language: Japanese Communication Ability: Effective Electric Plater Required: No Beliefs That Will Affect Care: None Current Living Situation: Spouse Feels Safe at Home: Yes Physical Exam Physical Exam: On exam the patient is in bed. She is holding her arm to her side. She exhibits reasonable sensory to light touch and cold bilateral upper extremities. 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 Biceps and deltoids 5/5. Deep and reflexes diminished. Markedly positive Spurling sign as well as Lhermitte's phenomenon with extension. Results & Data Vital Signs (Past 12 Hours) Vital Signs Temp Pulse Resp BP Pulse Ox O2 Del Method 07/11/24 07:41 36.6 C 70 18 102/65 97 Room Air
--- NOTE | 2024-07-11 10:57 | Hospitalist Progress Note ---
Date of Service July 11, 2024 Assessment & Plan (1) Left cervical radiculopathy: Plan: As per admitting provider w/ addendum -intractable left shoulder pain radiating down left arm -correlates with MRI findings of impingement from C5-C7 -disccused with ortho spine, may do procedure if pain does not control Plan: -regular diet for now, since ortho spine will not see until tomorrow -pain control as below -PT/OT ordered 07/11 As per orthopedics (Dr. Finch) - nucleus pulposus C6-C7 left with a fragment migrating caudally. Plan at this time in length yesterday with the patient and her to review MRI findings x-rays and clinical course. This time she could continue with medical management. We discussed possible cervical injections versus ultimately surgical invention. This time she rates her pain at 8-10 out of 10. She is finding little response from the steroids and IV narcotics. She would like to consider surgical invention. Would require an anterior cervical discectomy and fusion C6-C7. Risk benefits pros cons and alternatives were aligned in detail. Risk include but not limited to anesthesia blindness stroke process nerve damage blood loss requiring transfusion infection requiring reoperation dysphonia dysphagia. Best with a marked improvement of her radicular pattern. This time she would like to consider surgery. In light of her progressive motor deficit and refractory pain this is reasonable. She was made n.p.o. from after midnight plan for surgery tomorrow. Lastly I do disagree with the interpretation of the MRI. She does have a fragment of disc material on the left that has migrated caudally in addition to foraminal encroachment at C6-C7. (2) Intractable pain: Plan: -primarily neuropathic in nature with nociceptive component -has imaging correlate -patient gets upset stomach with tylenol Plan: -start decadron at 4mg q8hrs scheduled for inflammatory pain -start toradol q8hrs scheduled for inflammatory pain -start dilaudid 3mg PO q3hr prn for severe pain, 0.75 mg q3hr prn for breakthrough pain (0.5 mg only somewhat effective) -start pregablin 25mg tid for neuropathic component of pain 07/11 Pt still has minimal relief from pain, as above, and plan for surgical intervention tmrw (3) Cervical disc herniation: Plan: -see above Plan Feeding/fluids: regular Analgesia: see above Thromboprophylaxis: lovenox Ulcer prophylaxis: pepcid Bowel care: miralax prn Admission and Anticipated Discharge Date Admission Date: July 10, 2024 Subjective Pt seen in follow up Currently sitting up in bed in NAD RN present at the bedside Minimal relief from pain Pt discussed w/ orthopedic surgeon earlier and plan is for surgical intervention tomorrow Review of Systems Review of Systems: All systems reviewed & are unremarkable except as noted in Subjective Physical Exam Physical Exam: Gen: WD/WN young F in NAD HEENT: NCAT, EOMI, external ears normal. No rhinorrhea. Moist mucous membranes. Neck: Supple Lungs: No Respiratory distress. CTAB CV: RRR, no edema. Abdomen: Soft, nondistended, No rebound tenderness. MSK: left arm pain with movement and palpation Skin: No rashes, petechiae, lesions. Normal color per patient. Neuro/Psych: awake, alert, answers appropriately, speech fluent, moves extremities, L arm as above Results & Data Results & Data Vital Signs (Past 12 Hours) Vital Signs Temp Pulse Resp BP Pulse Ox O2 Del Method 07/11/24 07:41 36.6 C 70 18 102/65 97 Room Air Laboratory Results 07/11/24 07/10/24 07/10/24 Range/Units 06:39 19:35 12:07 WBC 17.14 H 12.44 H (4.8-10.8) K/ul RBC 4.57 4.61 (4.20-5.40) M/uL Hgb 13.9 14.0 (12.0-16.0) g/dl Hct 41.1 41.4 (37.0-47.0) % MCV 89.9 89.8 (80.0-100.0) fL MCH 30.4 30.4 (25.0-34.0) pg MCHC 33.8 33.8 (32.0-36.0) g/dL RDW Std Deviation 38.4 38.6 (36.4-46.3) fL RDW Coeff of Rob 11.7 11.8 (11.5-14.5) % Plt Count 266 247 (130-400) K/uL MPV 11.8 11.1 (9.4-12.4) fL Immature Gran % (Auto) 0.3 % Neut % (Auto) 93.1 % Lymph % (Auto) 5.1 % [place] % (Auto) 1.2 % Eos % (Auto) 0.1 % Baso % (Auto) 0.2 % Neut # (Auto) 11.59 H (1.40-6.50) K/uL Lymph # (Auto) 0.63 L (1.20-3.40) K/uL [place] # (Auto) 0.15 (0.11-0.59) K/uL Eos # (Auto) 0.01 (0.00-0.50) K/uL Baso # (Auto) 0.02 (0.00-0.20) K/uL Immature Gran # (Auto) 0.04 (0.01-0.20) K/uL RBC Morphology Unremarkable PT 11.1 (9.0-12.0) Seconds INR 1.0 (0.9-1.1) Sodium 138 138 (136-145) mmol/L Potassium 4.2 4.1 (3.5-5.1) mmol/L Chloride 106 107 (98-107) mmol/L Carbon Dioxide 25 28 (21-32) mmol/L Anion Gap 7 3 (3-11) BUN 25 H 16 (6-23) mg/dl Creatinine 0.82 0.77 (0.6-1.2) mg/dl Est Cr Clr Drug Dosing 87.8 93.5 ml/min eGFR 92.10 99.32 BUN/Creatinine Ratio 30.5 H 20.8 H (10-20) Glucose 135 H 128 H (70-99(Fasting)) mg/dl Calcium 9.4 9.1 (8.6-10.3) mg/dl HCG, Qual Negative (Negative) Blood Type A Negative Antibody Screen NEGATIVE Medications Administered Current Inpatient Medications Enoxaparin Sodium (Enoxaparin Inj 40 Mg/0.4 Ml Syr) 40 mg SQ QAM [facility] Stop: 08/10/24 08:59 Last Admin: 07/11/24 09:09 Dose: 40 mg Hydromorphone HCl (Hydromorphone Hcl 2 Mg Tab) 3 mg PO Q3HWA PRN PRN Reason: Pain Stop: 07/24/24 18:47 Last Admin: 07/10/24 19:10 Dose: 3 mg Hydromorphone HCl (Hydromorphone Inj 0.5 Mg/0.5 Ml Syr) 0.75 mg IV Q3HWA PRN PRN Reason: Breakthrough Pain Stop: 07/24/24 18:47 Last Admin: 07/11/24 10:31 Dose: 0.75 mg Dexamethasone 4 mg/ Syringe 1 mls @ 1 mls/min IV Q8 [facility] Stop: 08/09/24 21:59 Last Admin: 07/11/24 05:59 Dose: 1 mls/min Ketorolac Tromethamine (Ketorolac Tromethamine 15 Mg/Ml Vial) 15 mg IV Q8 [facility] Stop: 07/15/24 21:59 Last Admin: 07/11/24 05:59 Dose: 15 mg Melatonin (Melatonin 3 Mg Tab) 3 mg PO HS PRN PRN Reason: Insomnia Stop: 08/09/24 18:02 Last Admin: 07/10/24 21:16 Dose: 3 mg Polyethylene Glycol (Polyethylene (Miralax) 17 Gm Pack) 17 gm PO DAILY PRN PRN Reason: Constipation Stop: 08/09/24 18:02 Pregabalin (Pregabalin 25 Mg Cap) 25 mg PO TID [facility] Stop: 08/09/24 20:59 Last Admin: 07/11/24 09:09 Dose: 25 mg
[2024-07-11] MEDS: FAMOTIDINE 20MG IV PUSH 20 MG/5 ML SYR IV SCH (11:35)
[2024-07-11] MEDS: PROCHLORPERAZINE 5 MG in SYRINGE 4 ML IV ONE (21:32)
--- NOTE | 2024-07-12 07:38 | Hospitalist Progress Note ---
Date of Service July 12, 2024 Assessment & Plan (1) Left cervical radiculopathy: Plan: As per admitting provider w/ addendum -intractable left shoulder pain radiating down left arm -correlates with MRI findings of impingement from C5-C7 -discussed with ortho spine, may do procedure if pain does not control Plan: -regular diet for now, since ortho spine will not see until tomorrow -pain control as below -PT/OT ordered 07/11 As per orthopedics (Dr. Finch) - nucleus pulposus C6-C7 left with a fragment migrating caudally. Plan at this time in length yesterday with the patient and her to review MRI findings x-rays and clinical course. This time she could continue with medical management. We discussed possible cervical injections versus ultimately surgical invention. This time she rates her pain at 8-10 out of 10. She is finding little response from the steroids and IV narcotics. She would like to consider surgical invention. Would require an anterior cervical discectomy and fusion C6-C7. Risk benefits pros cons and alternatives were aligned in detail. Risk include but not limited to anesthesia blindness stroke process nerve damage blood loss requiring transfusion infection requiring reoperation dysphonia dysphagia. Best with a marked improvement of her radicular pattern. This time she would like to consider surgery. In light of her progressive motor deficit and refractory pain this is reasonable. She was made n.p.o. from after midnight plan for surgery tomorrow. Lastly I do disagree with the interpretation of the MRI. She does have a fragment of disc material on the left that has migrated caudally in addition to foraminal encroachment at C6-C7. 07/12 No change overnight, woke up at 3am w/ pain Plan for surgery today Pt feeling well otherwise, no fever, chills, chest pain, shortness of breath, or abd. pain (2) Intractable pain: Plan: -primarily neuropathic in nature with nociceptive component -has imaging correlate -patient gets upset stomach with tylenol Plan: -start decadron at 4mg q8hrs scheduled for inflammatory pain -start toradol q8hrs scheduled for inflammatory pain -start dilaudid 3mg PO q3hr prn for severe pain, 0.75 mg q3hr prn for breakthrough pain (0.5 mg only somewhat effective) -start pregablin 25mg tid for neuropathic component of pain 07/11 Pt still has minimal relief from pain, as above, and plan for surgical intervention (3) Cervical disc herniation: Plan: -see above Plan Feeding/fluids: regular Analgesia: see above Thromboprophylaxis: lovenox Ulcer prophylaxis: pepcid Bowel care: miralax prn Admission and Anticipated Discharge Date Admission Date: July 10, 2024 Subjective Pt seen in follow up , plan is for surgical intervention today Currently sitting up in bed in NAD Minimal relief from pain, reports waking up at 3 am w/ pain Otherwise no fever, chills, chest pain or shortness of breath Pt's present at the bedside Review of Systems Review of Systems: All systems reviewed & are unremarkable except as noted in Subjective Physical Exam Physical Exam: Gen: WD/WN young F in NAD HEENT: NCAT, EOMI, external ears normal. No rhinorrhea. Moist mucous membranes. Neck: Supple Lungs: No Respiratory distress. CTAB CV: RRR, no edema. Abdomen: Soft, nondistended, No rebound tenderness. MSK: left arm pain with movement and palpation Skin: No rashes, petechiae, lesions. Normal color per patient. Neuro/Psych: awake, alert, answers appropriately, speech fluent, moves extremities, L arm as above Results & Data Results & Data Vital Signs (Past 12 Hours) Vital Signs Temp Pulse Resp BP Pulse Ox O2 Del Method 07/12/24 07:19 36.6 C 57 L 18 107/69 97 Room Air 07/11/24 19:50 36.7 C 77 16 109/67 96 Room Air Laboratory Results 07/11/24 Range/Units 06:39 PT 11.1 (9.0-12.0) Seconds INR 1.0 (0.9-1.1) Sodium 138 (136-145) mmol/L Potassium 4.2 (3.5-5.1) mmol/L Chloride 106 (98-107) mmol/L Carbon Dioxide 25 (21-32) mmol/L Anion Gap 7 (3-11) BUN 25 H (6-23) mg/dl Creatinine 0.82 (0.6-1.2) mg/dl Est Cr Clr Drug Dosing 87.8 ml/min eGFR 92.10 BUN/Creatinine Ratio 30.5 H (10-20) Glucose 135 H (70-99(Fasting)) mg/dl Calcium 9.4 (8.6-10.3) mg/dl Medications Administered Current Inpatient Medications Enoxaparin Sodium (Enoxaparin Inj 40 Mg/0.4 Ml Syr) 40 mg SQ QAM CARY Stop: 08/10/24 08:59 Last Admin: 07/11/24 09:09 Dose: 40 mg Hydromorphone HCl (Hydromorphone Hcl 2 Mg Tab) 3 mg PO Q3HWA PRN PRN Reason: Pain Stop: 07/24/24 18:47 Last Admin: 07/12/24 03:12 Dose: 3 mg Hydromorphone HCl (Hydromorphone Inj 0.5 Mg/0.5 Ml Syr) 0.75 mg IV Q3HWA PRN PRN Reason: Breakthrough Pain Stop: 07/24/24 18:47 Last Admin: 07/12/24 07:19 Dose: 0.75 mg Dexamethasone 4 mg/ Syringe 1 mls @ 1 mls/min IV Q8 CARY Stop: 08/09/24 21:59 Last Admin: 07/12/24 05:43 Dose: 1 mls/min Famotidine (Pepcid 20mg Iv Push) 20 mg in 5 mls @ 2.5 mls/min IV Q12H [facility] Stop: 08/10/24 10:59 Last Admin: 07/11/24 23:27 Dose: 2.5 mls/min Melatonin (Melatonin 3 Mg Tab) 3 mg PO HS PRN PRN Reason: Insomnia Stop: 08/09/24 18:02 Last Admin: 07/10/24 21:16 Dose: 3 mg Polyethylene Glycol (Polyethylene (Miralax) 17 Gm Pack) 17 gm PO DAILY PRN PRN Reason: Constipation Stop: 08/09/24 18:02 Pregabalin (Pregabalin 25 Mg Cap) 25 mg PO TID [facility] Stop: 08/09/24 20:59 Last Admin: 07/11/24 21:44 Dose: 25 mg
[2024-07-12 08:21] LABS: Hematocrit (blood only) 38.3 % (37.0-47.0); Hemoglobin 12.9 g/dl (12.0-16.0); Mean Corpuscular Hemoglobin 29.9 pg (25.0-34.0); Mean Corpuscular Hgb Conc 33.7 g/dL (32.0-36.0); Mean Corpuscular Volume 88.7 fL (80.0-100.0); Mean Platelet Volume 11.8 fL (9.4-12.4); Platelet Count 232 K/uL (130-400); RDW Coefficient of Variation 11.8 % (11.5-14.5); RDW Standard Deviation 37.8 fL (36.4-46.3); Red Blood Count 4.32 M/uL (4.20-5.40); White Blood Count 13.93 K/ul (4.8-10.8)
[2024-07-12 08:34] LABS: BUN Creatinine Ratio 44.8 (10-20); Creatinine Clr Calc Pharmacy 107.5 ml/min; Phosphorus 3.3 mg/dl (2.5-4.9); Potassium 4.4 mmol/L (3.5-5.1)
[2024-07-12] MEDS ORDERED: MIDAZOLAM HCL 1 MG/ML 2ML VIAL ONE ×2 (10:12→11:55)
[2024-07-12] MEDS ORDERED: fentaNYL citrate PF 100 MCG/2 ML VIAL ONE (10:12)
[2024-07-12] MEDS ORDERED: KETAMINE HCL 10MG/ML SYR ONE (10:13)
[2024-07-12] MEDS ORDERED: PROPOFOL IV EMULSION 10 MG/ML 20 ML VIAL IV ONE (10:15)
[2024-07-12] MEDS ORDERED: LIDOCAINE 2% 2 ML VIAL/AMP(20MG/ML) INFIL ONE ×2 (10:15)
[2024-07-12] MEDS ORDERED: ROCURONIUM BROMIDE 10 MG/ML 5 ML VIAL IV ONE ×2 (10:15→12:46)
[2024-07-12] MEDS ORDERED: DEXAMETHASONE SOD INJ 4 MG/ML VIAL ONE ×2 (10:15)
[2024-07-12] MEDS ORDERED: ONDANSETRON INJ 2 MG/ML 2 ML VIAL ONE (10:15)
--- NOTE | 2024-07-12 10:20 | XRay Report ---
XR chest 1V portable CLINICAL HISTORY: pre-op COMPARISON STUDY: None FINDINGS: Heart size and pulmonary vasculature are normal. No effusion or consolidation. IMPRESSION: No acute findings. ACT 112: Negative or not required by law. Electronically signed by: Ho Smith M.D. 07/12/2024 10:19 AM
[2024-07-12] MEDS ORDERED: HYDROmorphone INJ 2 MG/ML SYR/VIAL IV PRN (10:45)
[2024-07-12] MEDS ORDERED: ONDANSETRON INJ 2 MG/ML 2 ML VIAL IV PRN ×2 (10:45→14:56)
[2024-07-12] MEDS ORDERED: fentaNYL citrate PF 100 MCG/2 ML VIAL IV PRN (10:45)
[2024-07-12] MEDS ORDERED: ATROPINE SULFATE 0.1 MG/ML 10ML SYR IV PRN (10:45)
[2024-07-12] MEDS ORDERED: ePHEDrine sulfate 50 MG/ML AMP IV PRN (10:45)
[2024-07-12] MEDS ORDERED: PROMETHAZINE HCL 6.25 MG in SODIUM CHLORIDE 0.9% 50 ML IV PRN (10:45)
[2024-07-12] MEDS ORDERED: Nursing to Pharmacy Communication SCH (10:45)
[2024-07-12 10:53] LABS: Appearance Urine Clear (Clear); Bilirubin Urine Negative (Negative); Blood Urine Negative (Negative); Color Urine Yellow; Glucose Urine UA Negative (Negative); Ketones Urine Negative (Negative); Leukocyte Esterase Urine Negative (Negative); Nitrite Urine Negative (Negative); Pregnancy Test, Urine Negative (Negative); Protein Urine Negative (Negative); Specific Gravity Urine 1.028 (1.000-1.030); Urobilinogen Urine Negative (Negative); pH Urine 5.5 (4.5-7.5)
--- NOTE | 2024-07-12 10:53 | Anesthesiology Consultation ---
Date of Service July 12, 2024 Assessment & Plan (1) Encounter for pre-operative examination: Chart Review Chart Review: Acceptable Risk for Surgery and Patient NOT seen in Pre Admission Testing Consults Requested none ASA ASA1 Proposed Anesthesia Anesthesia Type: General Risk / Benefits Reviewed With: PT / POA / Parent / Guardian, Accepts Plan and Informed Consent Obtained History Surgery Operation Date: 07/12/24 12:15 Proposed Procedures p Anterior Cervical Discectomy Fusion C6-C7 - Kenneth Finch DO Height/Weight Height: 5 ft 7 in Weight: 67.6 kg Allergies Allergy/AdvReac Type Severity Reaction Status Date / Time cefaclor Allergy Mild Verified 09/15/14 09:39 naproxen Allergy Mild ? Verified 09/15/14 09:39 Cephalosporins Allergy Unknown TAKES SKIN Verified 09/15/14 09:39 OFF TONGUE SULFA Allergy Intermediate TAKES SKIN Uncoded 08/05/12 07:35 OFF HER TONGUE Medications Home Medications Medication Instructions Recorded Confirmed Last Taken omeprazole 20 mg PO QAM #0 caps 02/06/14 07/10/24 Unknown ONDANSETRON (ZOFRAN ODT) 4 mg sublingual Q4 PRN nausea #10 09/15/14 07/10/24 Unknown tabs Tylenol 1,000 mg PO DIRECTED PRN Pain 09/15/14 07/10/24 Unknown #0 tabs ibuprofen 600 mg PO BID PRN Pain #0 tabs 09/15/14 07/10/24 Unknown cyclobenzaprine 10 mg tablet 10 mg PO DIRECTED 07/10/24 07/10/24 Unknown Active Medications Generic Name Dose Route Start Last Admin Trade Name Cedricq PRN Reason Stop Dose Admin Enoxaparin Sodium 40 mg 07/11/24 09:00 07/11/24 09:09 Enoxaparin Inj 40 Mg/0.4 Ml Syr SQ 08/10/24 08:59 40 mg QAM CARY Administration Hydromorphone HCl 3 mg 07/10/24 18:48 07/12/24 03:12 Hydromorphone Hcl 2 Mg Tab PO 07/24/24 18:47 3 mg Q3HWA PRN Administration Pain Hydromorphone HCl 0.75 mg 07/10/24 18:48 07/12/24 07:19 Hydromorphone Inj 0.5 Mg/0.5 Ml Syr IV 07/24/24 18:47 0.75 mg Q3HWA PRN Administration Breakthrough Pain Dexamethasone 4 mg/ Syringe 1 mls @ 1 mls/min 07/10/24 22:00 07/12/24 05:43 IV 08/09/24 21:59 1 mls/min Q8 CARY Administration Famotidine 20 mg in 5 mls @ 2.5 mls/min 07/11/24 11:00 07/11/24 23:27 Pepcid 20mg Iv Push IV 08/10/24 10:59 2.5 mls/min Q12H CARY Administration Lactated Ringer's 1,000 mls @ 15 mls/hr 07/12/24 06:00 07/12/24 11:04 Lr IV 07/13/24 05:59 15 mls/hr .Q24H CARY Administration Melatonin 3 mg 07/10/24 18:03 07/10/24 21:16 Melatonin 3 Mg Tab PO 08/09/24 18:02 3 mg HS PRN Administration Insomnia Pregabalin 25 mg 07/10/24 21:00 07/12/24 08:41 Pregabalin 25 Mg Cap PO 08/09/24 20:59 25 mg TID CARY Administration NPO Date Last Intake of Fluids: 07/12/24 Time Last Intake of Fluids: 00:00 Date Last Intake of Solids: 07/12/24 Time Last Intake of Solids: 00:00 Last Intake of Solids Comment: Given pregablin PO this morning with little sips of water Past Medical History Medical History (Updated 07/12/24 @ 11:29 by Tonny Mckinley MD) Encounter for pre-operative examination No significant past medical history Exercise / Class Metabolic Activity II 4-5 Yardwork/Stairs/Walk up hill Past Surgical History Surgical History Status post breast lumpectomy History of hernia repair H/O section History of partial thyroidectomy Social History Smoking Status: Never smoker Hx Alcohol Use: No Hx Substance Use: No Physical Exam Vital Signs Last Vital Signs Temp 36.7 C 07/12/24 10:58 Pulse 69 07/12/24 10:58 Resp 20 07/12/24 10:58 BP 103/64 07/12/24 10:58 Pulse Ox 100 07/12/24 10:58 O2 Del Method Room Air 07/12/24 10:58 Testing Laboratory Results 07/12/24 07:38 07/12/24 07:38 PT 11.1 Seconds (9.0-12.0) 07/11/24 06:39 INR 1.0 (0.9-1.1) 07/11/24 06:39 Urine Color Yellow 07/12/24 10:30 Urine Appearance Clear (Clear) 07/12/24 10:30 Urine pH 5.5 (4.5-7.5) 07/12/24 10:30 Ur Specific [place] 1.028 (1.000-1.030) 07/12/24 10:30 Urine Protein Negative (Negative) 07/12/24 10:30 Urine Glucose (UA) Negative (Negative) 07/12/24 10:30 Urine Ketones Negative (Negative) 07/12/24 10:30 Urine Nitrite Negative (Negative) 07/12/24 10:30 Ur Leukocyte Esterase Negative (Negative) 07/12/24 10:30 Urine Test Negative (Negative) 07/12/24 10:30 Blood Type A Negative 07/10/24 19:35 Antibody Screen NEGATIVE 07/10/24 19:35 07/12/24 10:30 Urine Test Negative Electrocardiogram Date: 07/12/24 Findings: + NSR @ (71)
[2024-07-12] MEDS: LR 15ML/HR IV SCH (11:04)
--- NOTE | 2024-07-12 11:32 | History & Physical Bridge Note ---
Date of Service July 12, 2024 History & Physical Bridge Note I have examined the patient, reviewed the History & Physical and in the interval since the performance of the History & Physical I have noted the following changes of clinical significance: no changes noted patient has severe left arm radiculopathy with progressive neurologic deficit unresponsive to IV narcotic medication and is here for urgent anterior cervical discectomy and fusion C6-C7.
[2024-07-12] MEDS: ceFAZolin 330 MG/ML 1 GM VIAL ONE (12:25)
[2024-07-12] MEDS: CLINDAMYCIN/D5W 900 MG/50 ML BAG IV SCH (12:25)
[2024-07-12] MEDS ORDERED: PHENYLEPHRINE 100MCG/ML 10ML SYR IV ONE (12:26)
[2024-07-12] MEDS ORDERED: PROPOFOL IV EMULSION 10 MG/ML 100 ML VIAL IV ONE ×2 (12:27)
[2024-07-12] MEDS: CLINDAMYCIN 900 MG/D5W 50 ML BAG IV ONE (12:48)
[2024-07-12] MEDS ORDERED: SUGAMMADEX SODIUM 200 MG/2 ML VIAL IV ONE (13:14)
[2024-07-12] MEDS: FLOSEAL HEMOSTATIC MATRIX 10ML TOP ONE (13:15)
--- NOTE | 2024-07-12 13:18 | Operative Report ---
Post Operative Report Pre & Post Diagnosis Operation Date: 07/12/24 12:15 Pre-Op Diagnosis: Herniation of cervical intervertebral disc with radiculopathy Post-Op Diagnosis: Herniation of cervical intervertebral disc with radiculopathy I identified the patient and participated in the time-out.: Yes Procedure Operation Date: 07/12/24 12:15 Actual Procedures #1 anterior cervical discectomy with bilateral foraminotomies and removal of herniated free fragment at C6-C7. #2 anterior cervical arthrodesis C6-C7. #3 placement of Spira 8 mm cage filled with os design bone graft C6-C7. #4 application of K2 and plate and screws across C6-C7. Surgeon Kenneth Finch, [facility] Martha Bates Estimated Blood Loss 10 Findings Consistent with Post-Op Diagnosis Specimens None Indications This is a 39-year-old female presents emergency room with severe cervical radiculopathy. In light of her refractory pain and progressive neurodeficit she is here for urgent surgical intervention. Description of Procedure Patient was met with identified informed consent obtained. Patient was then t aken to the operative suite underwent intubation placed in a supine position the Blaise table with head Giron roustabout head. All bony prominences well-padded eyes inspected to ensure no external pressure placed upon the. This point the anterior cervical spine was prepped and draped in normal sterile fashion. The assistance of fluoroscopy identified the C6-C7 disc space and a transverse incision was placed along the right anterior aspect the cervical spine overlying this region. Blunt dissection with the assistance of bipolar cautery as informed down to and exposing the anterior cervical spine at C6-C7. A self retaining retractor was placed. A complete discectomy of C6-C7 was then performed out to the uncovertebral and bilaterally. [place] distracting pins utilized to assist in visualization. Removed all posterior annular fibers longitudinal ligament several fragments of disc material were noted in the left neuroforamen and posterior to the C7 vertebral body. They removed in their entirety. The area was explored several times to ensure all fragments addressed. Endplates were then burred to subcortical bleeding bone and an 8 mm spiral cage filled with os design bone graft tapped in position. Distracting apparatus was removed. A cage bone plate and screws applied with the assistance of fluoroscopy. The incision was then copiously irrigated explored to ensure no damage to surrounding structures remaining bleeding. 10 round KIN drain inserted. The incision was then closed with 2 Vicryl in the fashion of 4 Monocryl for final skin closure. Steri-Strips sterile dressing placed. Patient waken taken PACU stable condition. Please note spinal cord monitoring was utilized at the procedure no changes noted. Martha Bates was present at the entire surgery and while the patient positioning complex portion of the surgery and final skin closure. I attest to the content of the Intraoperative Record and any orders documented therein. Any exceptions are noted below.
--- NOTE | 2024-07-12 13:53 | Fluoroscopy Report ---
FL cervical 2-3V CLINICAL HISTORY: C6-C7 ANTERIOR DISCECTOMY/FUSION COMPARISON STUDY: None FLUOROSCOPY TIME: 13 seconds FLUOROSCOPY IMAGES: 3 EXPOSURE DOSE: 0.9 mGy FINDINGS: Fluoroscopy was provided for lower cervical instrument fusion. IMPRESSION: Intraoperative fluoroscopy. ACT 112: Negative or not required by law. Electronically signed by: Ho Smith M.D. 07/12/2024 1:52 PM
--- NOTE | 2024-07-12 14:36 | Anesthesiology Progress Note ---
Date of Service July 12, 2024 Anesthesia Post Procedure Vital Signs Vital Signs: Temp Pulse Pulse Resp BP Pulse Ox O2 Del Method 07/12/24 14:24 59 L 14 110/64 100 Oxymask 07/12/24 14:15 56 L 12 111/67 100 Oxymask 07/12/24 14:05 60 12 113/64 100 Oxymask 07/12/24 13:55 56 L 13 114/62 100 Oxymask 07/12/24 13:45 62 12 109/61 100 Oxymask 07/12/24 13:37 36.8 C 73 18 111/71 98 Oxymask 07/12/24 10:58 36.7 C 69 20 103/64 100 Room Air 07/12/24 07:19 36.6 C 57 L 18 107/69 97 Room Air 07/11/24 19:50 36.7 C 77 16 109/67 96 Room Air 07/11/24 15:27 37 C 74 16 100/66 96 Room Air O2 Flow Rate 07/12/24 14:24 2 07/12/24 14:15 2 07/12/24 14:05 2 07/12/24 13:55 2 07/12/24 13:45 4 07/12/24 13:37 6 07/12/24 10:58 07/12/24 07:19 07/11/24 19:50 07/11/24 15:27 Pain Intensity Left Shoulder: Pain Intensity: 9 Transfer of Care Handoff Completed per policy Notes Mental Status: alert / awake / arousable and participated in evaluation Patient Amnestic to Procedure: Yes Nausea / Vomiting: adequately controlled Pain: adequately controlled Airway Patency, RR, SpO2: stable & adequate BP & HR: stable & adequate Hydration State: stable & adequate Anesthetic Complications: no major complications apparent and Pt Satisfied with anesthetic care
--- NOTE | 2024-07-12 14:36 | Anesthesiology Progress Note ---
Date of Service July 12, 2024 Anesthesia Post Procedure Vital Signs Vital Signs: Temp Pulse Pulse Resp BP Pulse Ox O2 Del Method 07/12/24 14:24 59 L 14 110/64 100 Oxymask 07/12/24 14:15 56 L 12 111/67 100 Oxymask 07/12/24 14:05 60 12 113/64 100 Oxymask 07/12/24 13:55 56 L 13 114/62 100 Oxymask 07/12/24 13:45 62 12 109/61 100 Oxymask 07/12/24 13:37 98.2 F 73 18 111/71 98 Oxymask 07/12/24 10:58 98.1 F 69 20 103/64 100 Room Air 07/12/24 07:19 97.9 F 57 L 18 107/69 97 Room Air 07/11/24 19:50 98.1 F 77 16 109/67 96 Room Air 07/11/24 15:27 98.6 F 74 16 100/66 96 Room Air O2 Flow Rate 07/12/24 14:24 2 07/12/24 14:15 2 07/12/24 14:05 2 07/12/24 13:55 2 07/12/24 13:45 4 07/12/24 13:37 6 07/12/24 10:58 07/12/24 07:19 07/11/24 19:50 07/11/24 15:27 Pain Intensity Left Shoulder: Pain Intensity: 9 Transfer of Care Handoff Completed per policy Notes Mental Status: alert / awake / arousable and participated in evaluation Patient Amnestic to Procedure: Yes Nausea / Vomiting: adequately controlled Pain: adequately controlled Airway Patency, RR, SpO2: stable & adequate BP & HR: stable & adequate Hydration State: stable & adequate Anesthetic Complications: no major complications apparent and Pt Satisfied with anesthetic care
[2024-07-12] MEDS ORDERED: traMADol HCL 50 MG TABLET PO PRN (14:56)
[2024-07-12] MEDS ORDERED: diphenhydrAMINE Capsule 25 MG CAP PO PRN (14:56)
[2024-07-12] MEDS ORDERED: LORazepam 2 MG/1 ML VIAL IV PRN (14:56)
[2024-07-12] MEDS ORDERED: HYDROmorphone INJ 0.5 MG/0.5 ML SYR IV PRN (14:56)
[2024-07-12] MEDS ORDERED: MAGNESIUM HYDROXIDE SUSP 30 ML UDC PO PRN (14:56)
[2024-07-12] MEDS ORDERED: RACEPINEPHRINE 2.25% NEBU SOLN 0.5 ML VIAL INH PRN (14:56)
[2024-07-12] MEDS ORDERED: HYDROmorphone INJ 1 MG/ML SYRINGE IV PRN (14:56)
[2024-07-12] MEDS ORDERED: SOD PHOSPHATE/SOD BIPHOSPHATE ENEMA 132 ML BTL PR PRN (14:56)
[2024-07-12] MEDS ORDERED: DO NOT ADMINISTER FLU VACCINE PRN (14:56)
[2024-07-12] MEDS ORDERED: ONDANSETRON 4 MG OD TAB PO PRN (14:56)
[2024-07-12] MEDS ORDERED: hydrOXYzine HCl 25 MG TAB PO PRN (14:56)
[2024-07-12] MEDS ORDERED: ALUMINUM/MAGNESIUM SUSP 30 ML UDC PO PRN (14:56)
[2024-07-12] MEDS ORDERED: NALOXONE HCL 0.4 MG/1 ML VIAL/CARP IV PRN (14:56)
[2024-07-12] MEDS ORDERED: FAMOTIDINE 20 MG TAB PO PRN (14:56)
[2024-07-12] MEDS ORDERED: DO NOT ADMINISTER PNEUMOCOCCAL VACCINE PRN (14:56)
[2024-07-12] MEDS ORDERED: dexAMETHasone 8 MG in SYRINGE 0 ML IV PRN (14:56)
[2024-07-12] MEDS ORDERED: ACETAMINOPHEN 500 MG TAB PO PRN (14:56)
[2024-07-12] MEDS ORDERED: METOCLOPRAMIDE HCL INJ 5 MG/ML 2 ML VIAL IV PRN (14:56)
[2024-07-12] MEDS ORDERED: PROMETHAZINE 12.5 MG/50.5 ML BAG IV PRN (14:56)
[2024-07-12] MEDS ORDERED: LORazepam 0.5 MG TAB PO PRN (14:56)
[2024-07-12] MEDS ORDERED: bisacodyL 10 MG SUPP PR PRN (14:56)
--- NOTE | 2024-07-12 14:56 | Electrocardiogram Report ---
Test Reason : Blood Pressure : */* mmHG Vent. Rate : 71 BPM Atrial Rate : 71 BPM P-R Int : 152 ms QRS Dur : 84 ms QT Int : 412 ms P-R-T Axes : 67 37 57 degrees QTcB Int : 447 ms Normal sinus rhythm Normal ECG No previous ECGs available Confirmed by Gordon Solano ([id number]) on 07/12/2024 2:56:20 PM Referred By: REFERRED SELF Confirmed By: Gordon Solano
[2024-07-12] MEDS: DOCUSATE SODIUM/SENNA 50/8.6MG TAB PO SCH (20:36)
[2024-07-12] MEDS: CLINDAMYCIN/D5W 600 MG/50 ML BAG IV SCH (20:37)
[2024-07-12] MEDS: ACETAMINOPHEN 1,000 MG/100 ML VIAL IV PRN (22:55)
[2024-07-13] MEDS: COUGH DROP (SUGAR FREE) LOZ 24 LOZ/1 BOX BUCCAL ONE (03:35)
[2024-07-13] MEDS: POLYETHYLENE (MIRALAX) 17 GM PACK PO SCH (05:01)
[2024-07-13 07:12] LABS: Hematocrit (blood only) 35.4 % (37.0-47.0); Hemoglobin 12.1 g/dl (12.0-16.0); Mean Corpuscular Hemoglobin 30.3 pg (25.0-34.0); Mean Corpuscular Hgb Conc 34.2 g/dL (32.0-36.0); Mean Corpuscular Volume 88.5 fL (80.0-100.0); Mean Platelet Volume 11.6 fL (9.4-12.4); Platelet Count 207 K/uL (130-400); RDW Coefficient of Variation 11.9 % (11.5-14.5); RDW Standard Deviation 38.4 fL (36.4-46.3); White Blood Count 14.21 K/ul (4.8-10.8)
[2024-07-13 07:31] LABS: BUN Creatinine Ratio 37.7 (10-20); Calcium 8.4 mg/dl (8.6-10.3); Magnesium 1.9 mg/dl (1.7-2.4); Potassium 3.7 mmol/L (3.5-5.1)
[2024-07-13] MEDS: dexAMETHasone 6 MG in SYRINGE 0 ML IV SCH (08:21)
[2024-07-13] MEDS: oxyCODONE HCL IR 5 MG TAB (IMMEDIATE RELEASE) PO PRN (08:22)
[2024-07-13 09:22] VITALS: BP 106/66; PULSE 62; RESP 16; TEMP 98.2; O2SAT 98
--- NOTE | 2024-07-13 10:11 | Discharge Summary ---
Date of Service July 13, 2024 Admission HPI Per Admitting Provider 39 yo female with pmhx of GERD, multinodular goiter, and GERA who presents with left arm pain. She states pain started this past Thursday with some tingling, then got worse on , and has just gotten worse since. Describes pain as stabbing pain, with tingling and burning components. States this has never happened before. Denies any systemic symptoms. Pain bad at rest but much worse with movement. No tobacco use, no alcohol use, no drug use, full code. Admission Exam Per Admitting Provider Gen: A&O 3 NAD HEENT: NCAT, EOMI, not icteric. External ears normal. No rhinorrhea. Moist mucous membranes. Neck: Supple, full range of motion, no observable masses, No meningeal sign. Lungs: No Respiratory distress. CV: RRR, no edema. Abdomen: Soft, nondistended, No rebound tenderness. MSK: left arm pain with movement and palpation Skin: No rashes, petechiae, lesions. Normal color per patient. Neuro: Normal Gait, Grossly intact. Psych: Appropriate for situation. Principal Diagnosis Herniation of cervical intervertebral disc with radiculopathy Discharge Exam Gen: WD/WN young F in NAD HEENT: NCAT, EOMI, external ears normal. No rhinorrhea. Moist mucous membranes. Neck: neck collar on, surg. dressings Lungs: No Respiratory distress. CTAB CV: RRR, no edema. Abdomen: Soft, nondistended, No rebound tenderness. MSK:moving extremities Skin: warm, dry Neuro/Psych: awake, alert, answers appropriately, speech fluent, moves extremities Discharge Data Allergies Allergy/AdvReac Type Severity Reaction Status Date / Time Sulfa (Sulfonamide Allergy Intermediate takes skin Verified 07/12/24 15:12 Antibiotics) off her tongue cefaclor Allergy Mild Unknown Verified 07/12/24 15:12 naproxen Allergy Mild ? Verified 09/15/14 09:39 Cephalosporins Allergy Unknown TAKES SKIN Verified 09/15/14 09:39 OFF TONGUE Consultations 07/10/24 15:48 ED Decision to Admit Stat 07/11/24 07:34 Consult Orthopedic Spine Surgery Routine Procedures Performed Operation Date: 07/12/24 12:15 Actual Procedures p Anterior Cervical Discectomy Fusion C6-C7(Not Applicable) - Kenneth Finch, Ordered Studies 07/10/24 11:43 MRI Cervical [MR cervical spine wo con] Stat FINDINGS: Motion artifact noted due to pain. Alignment: Lordotic straightening noted. Bone marrow signal: No edema Cervical cord: Allowing for CSF pulsation artifact, cervical cord is normal in size and signal intensity. No demyelinating plaques. Low-lying cerebellar tonsils: No Intervertebral disc signal: Normal Dens: Intact. C2-C3: Unremarkable C3-C4: Unremarkable C4-C5: Unremarkable C5-C6: An annular tear is present with a central to right foraminal intervertebral disc protrusion and uncovertebral hypertrophic changes. Neural foraminal stenosis is noted with impingement on the exiting right nerve root. No free disc fragment. C6-C7 a left paracentral to foraminal intervertebral disc extrusion is present, image 8, series 6 and image 22, series 8 with left exiting nerve root impingement. No free disc fragment. Incidentally, right lobe thyroid cysts are noted in the [id number], image 25, series 8. IMPRESSION: 1. Left intervertebral disc extrusion at C6-C7 with exiting nerve root impingement. No free disc fragment. 2. Degenerative disc disease at C5-C6 with right intervertebral disc protrusion which comes into contact with the right exiting nerve root. 3. Left thyroid cyst which could be further evaluated with dedicated ultrasound if appropriate. ACT 112: Positive. There are findings on this examination that require communication between the performing entity and the patient following Patient Test Result Information Act ([place] ACT 112) guidelines. 07/12/24 [place] cervical 2-3V Routine Hospital Course (1) Left cervical radiculopathy: Herniation of cervical intervertebral disc with radiculopathy -presented with intractable left shoulder pain radiating down left arm - Ortho spine consulted (Dr. Finch) 07/11 As per orthopedics (Dr. Finch) - nucleus pulposus C6-C7 left with a fragment migrating caudally. Plan at this time in length yesterday with the patient and her to review MRI findings x-rays and clinical course. This time she could continue with medical management. We discussed possible cervical injections versus ultimately surgical invention. This time she rates her pain at 8-10 out of 10. She is finding little response from the steroids and IV narcotics. She would like to consider surgical invention. Would require an anterior cervical discectomy and fusion C6-C7. Risk benefits pros cons and alternatives were aligned in detail. Risk include but not limited to anesthesia blindness stroke process nerve damage blood loss requiring transfusion infection requiring reoperation dysphonia dysphagia. Best with a marked improvement of her radicular pattern. This time she would like to consider surgery. In light of her progressive motor deficit and refractory pain this is reasonable. She was made n.p.o. from after midnight plan for surgery tomorrow. Lastly I do disagree with the interpretation of the MRI. She does have a fragment of disc material on the left that has migrated caudally in addition to foraminal encroachment at C6-C7. Pt underwent #1 anterior cervical discectomy with bilateral foraminotomies and removal of herniated free fragment at C6-C7. #2 anterior cervical arthrodesis C6-C7. #3 placement of Spira 8 mm cage filled with os design bone graft C6-C7. #4 application of K2 and plate and screws across C6-C7. on 07/12/2024 w/ Dr. Finch 07/13 POD #1 after surgery , pt is feeling well, pain much improved. Plan to discharge home (2) Intractable pain: pain control -patient gets upset stomach with tylenol Plan: - decadron at 4mg q8hrs scheduled for inflammatory pain - toradol q8hrs scheduled for inflammatory pain - dilaudid 3mg PO q3hr prn for severe pain, 0.75 mg q3hr prn for breakthrough pain (0.5 mg only somewhat effective) - pregablin 25mg tid for neuropathic component of pain - pt discharged on oxycodone and tramadol per orthopedic surgery (3) Cervical disc herniation: -see above Total Time Total Time Spent Total Time Spent (In Minutes): 40 Discharge Plan Discharge Items Patient Disposition: Home - Self-Care Reason For Visit: LEFT SHOULDER PAIN Discharge Diagnosis: Cervical disc herniation with radiculopathy Activity: As commented below Non-emergency contact: Primary Care Provider and Surgeon Call non-emergency contact if: you have any medication questions and your symptoms worsen Follow-up/Referrals: Bhavin Garcia M.D. [Primary Care Provider] - Diet: Regular Addtl Attending Provider Instructions: ACTIVITY RECOMMENDATIONS: SELF CARE INSTRUCTIONS AFTER CERVICAL FUSIONS 1. No smoking. Smoking drastically decreases the chance of a solid fusion. 2. No bending, lifting more than 5 pounds, or twisting (roll like a log when turning in bed). 3. You may shower 3 days after surgery. Thoroughly dry wound. Do not soak in the tub. 4. Cervical collar: Must be worn at all times including sleeping. You may remove the brace only to bath, eat and if you are sitting in a recliner. 5. Please walk as much as you can for exercise. Gradually increase the distance that you walk as your endurance increases. 6. You may return to previous diet. SPECIAL CARE INSTRUCTIONS: VERY IMPORTANT TO READ AND REVIEW A. Do not take any anti-inflammatory medications (i.e. Indocin, Advil, Aspirin, Naprosyn, Aleve, Motrin, etc.) as these may inhibit the chance of a solid fusion. Tylenol is okay to take. B. Your surgical incision has been closed with a cosmetic suture under the skin that will dissolve in about 6 weeks. In 14 days, you can use a pair of clean scissors and cut the suture that is left outside of the skin at the ends of your incision. C. Complications are uncommon, but please contact us if you have any signs or symptoms of: 1. wound infection (fever higher than 102.5 degrees F, redness, separation of wound, drainage, or increasing pain from the incision) 2. blood clots in legs (pain, swelling, redness and warmth in legs) 3. urinary tract infection (fever higher than 102.5 degrees, burning upon urination or increased frequency of urination) 4. nerve problems (inability to walk on your toes or heels, numbness, loss of bowel or bladder control) 5. any other symptoms that concern you. D. Please call the office at if you have any concerns or questions about your operation or recovery. MANAGING PAIN AFTER SPINAL SURGERY 1. Narcotic medication is intended for short-term use and will be provided for surgical pain. Surgical pain usually lasts for a period of 4-6 weeks. Narcotic medication includes Percocet, Vicodin, Darvocet, Tylenol #3 or Lortab. 2. Longer-term pain is more appropriately treated with non-narcotic medication such as Tylenol ES. 3. Muscle spasm is not appropriately treated with narcotics. Muscle relaxers such as Soma, Flexeril or Skelaxin can be used along with Tylenol ES. 4. Remember that we all live with some "aches and pains". This is not unusual or uncommon after an injury or as we get older. 5. We will provide appropriate medication within the normal guidelines of their prescribed use. We will also be very cautious and aware of potential abuse and extended duration of patients' medication needs. 6. Please allow 2-3 days to process refills. Prescriptions will not be mailed but must be picked up at the office. FOLLOW UP VISIT: Keep your scheduled follow-up appointment. Any questions, please call the office at . Pending Studies at Discharge: No Stand-Alone Forms: [facility] [employer], Smoking Cessation Medications and DC Order Prescriptions: New tramadol 50 mg tablet 50 mg PO Q6H PRN (Reason: pain, moderate) Qty: 30 0RF oxycodone 5 mg tablet 5 mg PO Q6H PRN (Reason: pain) Qty: 20 0RF Continued omeprazole 20 MG CONTR REL CAP 20 mg PO QAM Qty: 0 Rx Instructions: no fill history/otc Tylenol 500 MG tablet 1,000 mg PO DIRECTED PRN (Reason: Pain) Qty: 0 ibuprofen 200 MG tablet 600 mg PO BID PRN (Reason: Pain) Qty: 0 ONDANSETRON (ZOFRAN ODT) 4 MG tablet 4 mg Sublingual Q4 PRN (Reason: nausea) Qty: 10 0RF Rx Instructions: no fill history available cyclobenzaprine 10 mg tablet 10 mg PO DIRECTED Discharge Orders: Discharge Order (Routine); Ordered 07/13/24 Ordered By: Kenneth Finch Admission Data Admit Date/Time: 07/12/24 10:02 Attending Provider: Boogie Anderson Admit Provider: Ravindra Freire Primary Care Provider: Bhavin Garcia Other Providers: Bhavin Garcia; Ravindra Freire; Kenneth Finch Other Interventions: Discharge Summary Assessment (RN) Last Done: 07/13/24 10:25
--- NOTE | 2024-07-13 11:58 | Orthopedic Progress Note ---
Date of Service July 13, 2024 Assessment & Plan (1) Herniation of cervical intervertebral disc with radiculopathy: Plan: At this time patient is noting marked improvement of her radiculopathy. Strength is improving. She is safe for discharge home. Admission and Anticipated Discharge Date Admission Date: July 12, 2024 Subjective Arm symptoms markedly improved. Swallowing well. No hoarseness. Physical Exam Physical Exam: On exam patient is good strength testing. Is comfortable. Results & Data Vital Signs (Past 12 Hours) Vital Signs Temp Pulse Pulse Resp BP Pulse Ox O2 Del Method 07/13/24 08:35 36.8 C 62 16 106/66 98 Room Air 07/13/24 07:22 64 14 100 Room Air 07/13/24 07:11 36.5 C 61 16 105/66 97 Room Air 07/13/24 05:03 36.7 C 62 16 108/66 97 Room Air 07/13/24 03:20 36.6 C 61 16 105/65 99 Room Air 07/13/24 02:32 57 L 16 98 Room Air 07/13/24 00:58 36.7 C 57 L 16 100/58 L 96 Room Air
== END 2024-07-13 12:15 | disposition home or self-care (01) | DRG 473 ==
LOC: 3W 07:55 → ED 07:55 → SUATTDRO 16:06 → 3W 16:55